=== PATIENT | female | born 1980 | race Caucasian/White ===

== ENCOUNTER 2020-04-15 16:41 | Emergency (ER) | payer SELFPAY ==
--- NOTE | 2020-04-15 17:25 | XR_ITS ---
PROCEDURE: XR SHOULDER LT MIN 2V CLINICAL INDICATION: FALL Posttraumatic pain COMPARISON: No exams were available for comparison FINDINGS: No fracture or dislocation. No lytic or blastic change. There is normal mineralization. The joint spaces are well-preserved. No significant degenerative/arthritic changes. No erosive changes evident. Other findings:Mild hypertrophic changes are present along the under surface and distal aspect of the clavicle. IMPRESSION: No acute findings. Dictated by: Miguel Cardoza MD 04/16/2020 06:06 Miguel Cardoza MD in [place] 04/16/2020 06:06
--- NOTE | 2020-04-15 17:25 | XR_ITS ---
PROCEDURE: XR CLAVICLE LT CLINICAL INDICATION: FALL Posttraumatic pain COMPARISON: No exams were available for comparison FINDINGS: No fracture or dislocation. No lytic or blastic change. There is normal mineralization. The joint spaces are well-preserved. No significant degenerative/arthritic changes. No erosive changes evident. Other findings:Hypertrophic changes are present along the under surface and distal aspect of the clavicle. IMPRESSION: No acute findings. Dictated by: Miguel Cardoza MD 04/16/2020 06:07 Miguel Cardoza MD in [place] 04/16/2020 06:07
[2020-04-15 17:43] VITALS: BP 146/98; PULSE 77; RESP 19; TEMP 36.6; O2SAT 99; BMI 20.2
--- NOTE | 2020-04-15 17:47 | HMH.EDUTC ---
[facility] [place] Clinical Impression: Shoulder sprain Qualifiers: Encounter type: initial encounter Shoulder sprain type: unspecified sprain Laterality: left Qualified Code(s): S43.402A - Unspecified sprain of left shoulder joint, initial encounter Disposition: Home, Self-Care Condition on Discharge: Good Instructions: DI for Shoulder Pain, DI for Shoulder Sprain, How to Use a Sling, Ibuprofen Additional Instructions: *RICE, Rest the extremity, Ice 15-20 minutes 3-4 times daily, Compress- wear the nuno wrap as discussed as much as possible to help reduce swelling and pain, Elevate the extremity when at rest *Nuno wrap/sling is for support and help control swelling, use it except in the shower. Be sure that is not to tight but not to loose either *Elevate when resting *Ibuprofen 600-800mg every 6-8 hours as needed for pain an inflammation. If need something more can take Tylenol in between doses of Ibuprofen to help Call back to the [facility] tomorrow morning for the Radiology reading of your xray Return if needed Straight to ER if any life threatening symptoms FOllow up with your Family Doctor if no improvement for referral to [facility] if needed Referrals: Collin Malcolm [Primary Care Provider] - As needed Forms: Work/School Release Time of Disposition: 18:31 Medical Decision Making - Rajinder Inquiry Pt receiving controlled substance: No Rajinder was queried for this patient: No Vital Signs: 04/15/20 17:43 Temperature 97.9 F Temperature Source Oral Pulse Rate [Right Brachial] 77 Respiratory Rate 19 Blood Pressure [Right Arm] 146/98 H Blood Pressure Mean [Right Arm] 114 Blood Pressure Source [Right Arm] Automatic Cuff Blood Pressure Position [Right Arm] Sitting 02 Sat by Pulse Oximetry 99 Oxygen Delivery Method Room Air Orders (Tests/Meds): ORDERS Category Date Time Status XR clavicle LT Stat Exams 04/15/20 17:25 Taken XR shoulder LT min 2V Stat Exams 04/15/20 17:25 Taken - Radiology Data #1 Image(s): Shoulder (Left shoulder ) Image Reviewed: Yes I reviewed the patient's radiology image w/the ED provider Preliminary Findings: No Fracture Seen #2 Image(s): Clavicle (left clavicle) Image Reviewed: Yes I reviewed the patient's radiology image w/the ED provider Preliminary Findings: No Fracture Seen [facility] [place] - General Stated complaint: AO 1010 fell injured L shoulder Time Seen by Provider: 04/15/20 17:47 Mode of Arrival: Ambulatory Source of Information: Patient Limitations: No Limitations Description of Symptoms (Recalled from Triage Doc. by RN): PATIENT C/O PAIN TO LEFT SHOULDER/COLLARBONE AREA AFTER FALLING ON WEDNESDAY HEENT Symptoms (Recalled from RN notes): No Resp Symptoms (Recalled from RN notes): No Skin Symptoms (Recalled from RN notes): No MS Symptoms (Recalled from RN notes): Yes Functional Status (Recalled from RN notes): WNL - History of Present Illness Provider Complaint: Patient states that she fell on Wed while walking up the steps and landed on her left shoulder States that she has been having pain in left shoulder/collar bone ever since when she moves or raises her arm Denies numbness or tingling - Worker's Comp Is this a Worker's Comp case?: No [facility] History - Hepatitis A Screen Drug use history?: No High risk sexual behaviors?: No History of sexually transmitted infection?: No Currently employed?: No Childcare worker?: No Do you have indoor plumbing?: Yes Do you have electricity?: Yes Attestation statement:: This patient has been screened for Hepatitis A risk factors. I have reviewed the patient's past medical history: Yes - Social History Alcohol Intake: never Occupational Status: other ROS Obtained: Yes All systems reviewed & no additional complaints, Yes Systems reviewed as appropriate & no additional complaints - Constitutional Constitutional: Reports system reviewed and no additional complaints, except as docu - Eyes Eyes: Reports system reviewed and no
[2020-04-15 18:34] VITALS: BP 146/98; PULSE 77; RESP 19; TEMP 36.6; O2SAT 99
== END 2020-04-15 18:35 | disposition home or self-care (01) ==
PROVIDERS: Emergency Provider Nurse Practitioner; PCP Pediatrics
DX: S43.402A Unspecified sprain of left shoulder joint, initial encounter (principal); W10.9XXA Fall (on) (from) unspecified stairs and steps, initial encounter
CPT/HCPCS: 73000; 73030; 99201

== ENCOUNTER 2020-07-24 19:51 | Emergency (ER) | payer OTHER, SELFPAY ==
--- NOTE | 2020-07-24 19:51 | ECG_ITS ---
APPROVED REPORT Exam: Resting ECG HR:82 bpm ECG Measurements Heart Rate 82 AXES AK 160 P 83 QRSd 82 QRS 83 QT 374 T 80 QTc 436 Conclusion Normal sinus rhythm Right atrial enlargement NSSTTW changes Abnormal ECG Electronically signed by : Graham Herrera, 07/25/2020 20:56:35
[2020-07-24 19:52] VITALS: BP 133/109; PULSE 91; RESP 22; TEMP 39.1; O2SAT 99; BMI 20.5
[2020-07-24 20:00] VITALS: TEMP 36.7
--- NOTE | 2020-07-24 20:03 | XR_ITS ---
PROCEDURE: XR CHEST PORTABLE CLINICAL HISTORY: shortness of air Chest discomfort, shortness of air COMPARISON: CT CT ANGIO CHEST from 07/24/2020 FINDINGS: The cardiomediastinal silhouette and pulmonary vascularity are within normal limits. No acute infiltrate. There is coarsening of the bronchovascular markings which may be seen with smoking related lung disease. Minimal left apical pleural thickening. There is a granuloma in the right midlung laterally. No acute bony findings. IMPRESSION: Left apical pleural thickening with COPD. Consider chest CT for further evaluation. Dictated by: Miguel Cardoza MD 07/25/2020 05:41 Miguel Cardoza MD in [place] 07/25/2020 05:41
--- NOTE | 2020-07-24 20:08 | CT_ITS ---
PROCEDURE: CT ANGIO CHEST CLINCIAL INDICATION: chest discomfort Cough fever, possible Covid19 COMPARISON: No exams were available for comparison TECHNIQUE: IV Contrast: 70ML Isovue 370 Axial images obtained with sagittal and coronal reformats. All CT scans at the facility use one or more dose reduction, viz: automated exposure control, ma/kV adjustment per patient size (including targeted exams where dose is matched to indication, i.e. head), or iterative reconstruction technique. FINDINGS: HEART AND MEDIASTINAL STRUCTURES: No evidence of pulmonary embolus, aortic aneurysm, or aortic dissection.. Small nodes are present in the mediastinum. 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 LUNGS AND PLEURAL SPACES: There is mild bronchial thickening. Patchy increased density is present in both lung apices left greater than right and may be due to scarring or consolidation. Neoplasm is not excluded and follow-up is suggested. Scarring is present in the right apex. Vague small area ground-glass attenuation is present in the left upper lobe centrally. No effusions. BONY STRUCTURES: No acute bony abnormalities apparent. UPPER ABDOMEN: Unremarkable. ADDITIONAL FINDINGS: No other significant abnormalities. IMPRESSION: 1. No evidence of pulmonary embolus. 2. Biapical opacities left greater than right which could be due to scarring, pneumonia, or even neoplasm. Follow-up suggested. 3. Minimal ground-glass infiltrate in the left upper lobe centrally nonspecific. This area measures approximately 1.5 cm. Dictated by: Miguel Cardoza MD 07/25/2020 06:39 Miguel Cardoza MD in [place] 07/25/2020 06:39
[2020-07-24 20:11] LABS: Basophils # 0.1 K/mm3 (0-0.2); Basophils % 1.3 % (0.1-2.0); Eosinophils # 0.1 K/mm3 (0.0-0.4); Eosinophils % 2.1 % (0.1-12.0); Hematocrit 47.5 % (37.0-47.0); Hemoglobin 16.4 g/dL (12.2-16.2); Lymphocytes # 3.2 K/mm3 (0.7-4.5); Lymphocytes % 49.3 % (10-50); Mean Corpuscular HGB Conc 34.5 g/dL (31.8-35.4); Mean Corpuscular Hemoglobin 30.2 pg (27.0-31.2); Mean Corpuscular Volume 87.7 fl (81-99); Mean Platelet Volume 9.3 fl (7.4-10.4); Monocytes # 0.4 K/mm3 (0.1-1.0); Monocytes % 5.8 % (1.7-9.3); Neutrophils # 2.7 K/mm3 (1.8-7.8); Neutrophils % 41.4 % (37.0-80.0); Platelet Count 163 K/mm3 (142-424); Red Blood Count 5.42 M/mm3 (4.20-5.40); Red Cell Distribution Width 13.2 % (11.5-17.5); White Blood Count 6.6 K/mm3 (4.8-10.8)
[2020-07-24 20:30] VITALS: BP 165/108; PULSE 84; RESP 17; O2SAT 100
--- NOTE | 2020-07-24 20:46 | HMH.EDSOB ---
ED Disposition Clinical Impression: COVID-19 virus detected, Elevated BP without diagnosis of hypertension Disposition: Home, Self-Care Condition on Discharge: Good Instructions: DI for COVID-19 (Suspected or Confirmed ) Additional Instructions: monitor bp and call pcp for follow up Referrals: PCP,No [Primary Care Provider] - - Critical Care Critical Care Time: No Attestation: On 07/24/20, the high probability of a clinically significant, sudden or life threatening deterioration of the following system(s) required my full and direct attention, intervention and personal management. The time I documented below is in addition to time spent performing reported procedures but includes the following listed in this critical care notation. Medical Decision Making - Medical Records Medical records reviewed: Yes: I reviewed the patient's medical records. - Rajinder Inquiry Pt receiving controlled substance: No Vital Signs: 07/24/20 19:52 07/24/20 20:30 07/24/20 21:00 Temperature 102.3 F H Temperature Source Oral Pulse Rate [Right Brachial] 91 H 84 82 Respiratory Rate 22 17 17 Blood Pressure [Right Arm] 133/109 H 165/108 H 161/109 H Blood Pressure Mean [Right Arm] 117 127 126 Blood Pressure Source [Right Arm] Automatic Cuff Automatic Cuff Automatic Cuff Blood Pressure Position [Right Arm] Sitting Supine Supine 02 Sat by Pulse Oximetry 99 100 98 Oxygen Delivery Method Room Air Room Air Room Air - Lab Data Lab results reviewed: Yes: I reviewed the patient's lab results. Lab Results 07/24/20 19:55: WBC 6.6, RBC 5.42 H, Hgb 16.4 H, Hct 47.5 H, MCV 87.7, MCH 30.2, MCHC 34.5, RDW 13.2, Plt Count 163, MPV 9.3, Neut % (Auto) 41.4, Lymph % (Auto) 49.3, [place] % (Auto) 5.8, Eos % (Auto) 2.1, Baso % (Auto) 1.3, Neut # (Auto) 2.7, Lymph # (Auto) 3.2, [place] # (Auto) 0.4, Eos # (Auto) 0.1, Baso # (Auto) 0.1 07/24/20 19:55: Sodium 139, Potassium 4.2, Chloride 101, Carbon Dioxide 31 H, Anion Gap 11.2, BUN 8, Creatinine 0.60, Estimated Creat Clear 120, Estimated GFR 111, Est GFR ( Amer) 134, Glucose 89, Calcium 9.6, Total Bilirubin 0.5, Direct Bilirubin 0.2, Conjugated Bilirubin 0.0, Indirect Bilirubin 0.3, Unconjugated Bilirubin 0.3, AST 24, ALT 15, Alkaline Phosphatase 74, C-Reactive Protein 10.1 H, Total Protein 8.1, Albumin 4.5 07/24/20 19:55: ESR 20 07/24/20 19:55: Lactate 1.0 07/24/20 19:55: SARS-CoV-2 IgG Ab (Rapid) Negative, SARS-CoV-2 IgM Ab (Rapid) Negative 07/24/20 19:58: Urine Color Yellow, Urine Appearance Clear, Urine pH 7.0, Ur Specific [place] 1.010, Urine Protein Negative, Urine Glucose (UA) Negative, Urine Ketones Negative, Urine Blood Negative, Urine Nitrate Negative, Urine Bilirubin Negative, Urine Urobilinogen 0.2, Ur Leukocyte Esterase 1+ A, Urine WBC 10-20, Ur Squamous Epith Cells 10-20, Urine Bacteria 3+, Urine Mucus 1+ 07/24/20 20:00: Chlamy pneumoniae PCR Not detected, Adenovirus (PCR) Not detected, B. pertussis DNA (PCR) Not detected, Coronavirus OC43 (PCR) Not detected, Coronavirus HKU1 (PCR) Not detected, Coronavirus 229E (PCR) Not detected, SARS-CoV-2 (PCR) Detected A, Coronavirus NL63 (PCR) Not detected, Human Metapneumovir PCR Not detected, Influenza A (H1) PCR Not detected, Influ A (H1N1/09) PCR Not detected, Influenza A (H3) PCR Not detected, Influenza Type A (PCR) Not detected, Influenza Type B (PCR) Not detected, M. pneumoniae (PCR) Not detected, Parainfluenza 1 (PCR) Not detected, Parainfluenza 2 (PCR) Not detected, Parainfluenza 3 (PCR) Not detected, Parainfluenza 4 (PCR) Not detected, RSV (PCR) Not detected, Entero/Rhino (PCR) Not detected Result diagrams: 07/24/20 19:55 07/24/20 19:55 Orders (Tests/Meds): ED MEDICATIONS Generic Name Dose Route Start Last Admin Trade Name Freq PRN Reason Stop Dose Admin Sodium Chloride 1,000 mls @ 999 mls/hr 07/24/20 20:15 07/24/20 20:14 Sod Chlor 0.9% 1000ml Bag IV 07/24/20 21:15 999 mls/hr .Q1H1M MANI Administration Ceftriaxone Sodium 1 gm/
[2020-07-24 20:54] LABS: Adenovirus,PCR Not Detected (NotDetected); Bordetella Pertussis Not Detected (NotDetected); Chlamydophila Pneumoniae, PCR Not Detected (NotDetected); Coronavirus 229E Not Detected (NotDetected); Coronavirus NL63 Not Detected (NotDetected); Coronavirus OC43 Not Detected (NotDetected); Coronovirus HKU1,PCR Not Detected (NotDetected); Human Metapneumovirus Not Detected (NotDetected); Influenza A, PCR Not Detected (NotDetected); Influenza AH1, 2009 Not Detected (NotDetected); Influenza AH1, PCR Not Detected (NotDetected); Influenza AH3,PCR Not Detected (NotDetected); Influenza B, PCR Not Detected (NotDetected); Mycoplasma Pneumoniae, PCR Not Detected (NotDetected); Parainfluenza 1, PCR Not Detected (NotDetected); Parainfluenza 2, PCR Not Detected (NotDetected); Parainfluenza 3, PCR Not Detected (NotDetected); Parainfluenza 4, PCR Not Detected (NotDetected); Respiratory Syncytial Virus Not Detected (NotDetected); Rhinovirus/Enterovirus Not Detected (NotDetected)
[2020-07-24 21:00] VITALS: BP 161/109; PULSE 82; RESP 17; O2SAT 98
[2020-07-24 21:01] LABS: Erythrocyte Sedimentation Rate 20 mm/hr (0-20)
[2020-07-24 21:03] LABS: Chloride 101 mmol/L (98-107); Potassium 4.2 mmoL/L (3.5-5.1); Sodium 139 mmol/L (136-145)
[2020-07-24 21:05] LABS: Bilirubin,Unconjugated 0.3 mg/dL (0.0-1.1); Blood Urea Nitrogen 8 mg/dl (7-17); Creatinine Clearance Estimated 120 mL/min (50-200); Estimated Glomerular Filt Rate 111 ml/min (>60); GFR (African American) 134 ML/MIN (>60)
[2020-07-24 21:06] LABS: Alanine Aminotransferase 15 U/L (12-78); Albumin Level 4.5 g/dl (3.5-5.0); Alkaline Phosphatase 74 U/L (38-126); Anion Gap 11.2 mEq/L (5-15); Aspartate Amino Transferase 24 U/L (14-36); Bilirubin,Direct 0.2 mg/dl (0.0-0.4); Bilirubin,Indirect 0.3 mg/dL (0.0-0.9); Bilirubin,Total 0.5 mg/dl (0.2-1.3); Calcium 9.6 mg/dl (8.4-10.2); Carbon Dioxide 31 mmol/L (22.0-30.0); Glucose 89 mg/dl (74-100); Total Protein,Serum 8.1 g/dl (6.3-8.2)
[2020-07-24 21:12] LABS: C-Reactive Protein 10.1 mg/L (0-4)
[2020-07-24 21:18] LABS: Microscopic, Urine URINE MICROSCOPIC (MICROSCOPIC)
[2020-07-24 21:41] LABS: Appearance,Urine CLEAR (Clear); Bilirubin,Urine Negative (Negative); Blood, Urine Negative (Negative); Color,Urine YELLOW (Yellow); Glucose,Urine (UA) Negative (Negative); Ketones,Urine Negative (Negative); Leukocyte Esterase,Urine 1+ (Negative); Nitrate,Urine Negative (Negative); Protein,Urine Negative (Negative); Urobilinogen,Urine 0.2 EU/dl (0.2)
[2020-07-24 21:54] LABS: Bacteria,Urine 3+ /lpf; Mucus,Urine 1+ /lpf
[2020-07-24 22:07] LABS: Coronavirus 19 IgG Antibody Negative (Negative); Coronavirus 19 IgM Antibody Negative (Negative)
[2020-07-24 22:16] LABS: Coronavirus 19, PCR Detected (NotDetected)
[2020-07-24 22:30] VITALS: BP 151/101; PULSE 77; RESP 25; TEMP 36.9; O2SAT 98
== END 2020-07-24 22:52 | disposition home or self-care (01) ==
PROVIDERS: Emergency Provider Emergency Medicine; PCP Nurse Practitioner
DX: U07.1 COVID-19 (principal); R03.0 Elevated blood-pressure reading, without diagnosis of hypertension
CPT/HCPCS: 71045; 71275; 80048; 80076; 81001; 83605; 85025; 85651; 86140; 86328; 87040; 87086; 87088; 87186; 87581; 87633; 87798; 93005; 96365; 96375; 99284; Q9967

== ENCOUNTER → 2020-12-28 07:04 | Outpatient (CLI) | payer OTHER, SELFPAY ==
[2020-12-28 07:58] LABS: Basophils # 0.1 K/mm3 (0-0.2); Basophils % 0.8 % (0.1-2.0); Eosinophils # 0.1 K/mm3 (0.0-0.4); Eosinophils % 1.7 % (0.1-12.0); Hematocrit 42.5 % (37.0-47.0); Hemoglobin 14.4 g/dL (12.2-16.2); Lymphocytes # 2.2 K/mm3 (0.7-4.5); Lymphocytes % 34.1 % (10-50); Mean Corpuscular HGB Conc 33.7 g/dL (31.8-35.4); Mean Corpuscular Hemoglobin 29.6 pg (27.0-31.2); Mean Corpuscular Volume 87.7 fl (81-99); Mean Platelet Volume 9.7 fl (7.4-10.4); Monocytes # 0.4 K/mm3 (0.1-1.0); Neutrophils # 3.7 K/mm3 (1.8-7.8); Neutrophils % 57.5 % (37.0-80.0); Platelet Count 207 K/mm3 (142-424); Red Blood Count 4.85 M/mm3 (4.20-5.40); White Blood Count 6.5 K/mm3 (4.8-10.8)
[2020-12-28 12:22] LABS: Chloride 105 mmol/L (98-107); Potassium 4.3 mmoL/L (3.5-5.1); Sodium 138 mmol/L (136-145)
[2020-12-28 12:24] LABS: Blood Urea Nitrogen 7 mg/dl (7-17); Estimated Glomerular Filt Rate 110 ml/min (>60)
[2020-12-28 12:25] LABS: Alanine Aminotransferase 9 U/L (12-78); Albumin Level 3.9 g/dl (3.5-5.0); Albumin/Globulin Ratio 1.6 (1.1-1.8); Alkaline Phosphatase 68 U/L (38-126); Anion Gap 13.3 mEq/L (5-15); Aspartate Amino Transferase 18 U/L (14-36); Bilirubin,Total 0.5 mg/dl (0.2-1.3); Calcium 8.9 mg/dl (8.4-10.2); Carbon Dioxide 24 mmol/L (22.0-30.0); Cholesterol 111 mg/dl (140-200); GFR (African American) 133 ML/MIN (>60); Globulin 2.5 g/dL (1.3-3.2); Glucose 86 mg/dl (74-100); Total Protein,Serum 6.4 g/dl (6.3-8.2); Triglycerides 88 mg/dl (30-150); VLDL Cholesterol 18 mg/dL (0-40)
[2020-12-28 12:26] LABS: Chol/HDL Ratio 2.8 (1-3.5); HDL Cholesterol 39 mg/dl (40-60)
[2020-12-28 12:37] LABS: Direct LDL Cholesterol 56.94 mg/dL (100-129)
[2020-12-28 12:56] LABS: Thyroid Stimulating Hormone 0.51 uIU/mL (0.465-4.68)
[2020-12-28 14:14] LABS: Vitamin B12 286 pg/mL (239-931)
== END ==
PROVIDERS: Visit Provider Nurse Practitioner Family
DX: I10 Essential (primary) hypertension (principal); R53.81 Other malaise
CPT/HCPCS: 80053; 80061; 82607; 84443; 85025

== ENCOUNTER → 2021-05-23 17:36 | Outpatient (CLI) | payer OTHER, SELFPAY | PROVIDERS: Visit Provider Internal Medicine Adolescent Medicine | DX: L73.9 Follicular disorder, unspecified (principal); B95.8 Unspecified staphylococcus as the cause of diseases classified elsewhere | CPT/HCPCS: 87070; 87077; 87186; 87205 ==

== ENCOUNTER → 2021-07-08 07:23 | Outpatient (CLI) | payer OTHER, SELFPAY | PROVIDERS: PCP Nurse Practitioner Family; Visit Provider Nurse Practitioner Family | DX: Z20.822 Contact with and (suspected) exposure to COVID-19 (principal); R05.9 Cough, unspecified | CPT/HCPCS: C9803; U0003; U0005 ==

== ENCOUNTER 2022-01-10 19:24 | Emergency (ER) | payer OTHER, SELFPAY ==
--- NOTE | 2022-01-10 19:16 | ECG_ITS ---
APPROVED REPORT Exam: Resting ECG HR:86 bpm ECG Measurements Heart Rate 86 AXES UT 155 P 80 QRSd 86 QRS 86 QT 359 T 79 QTc 402 Conclusion SINUS RHYTHM MODERATE ST DEPRESSION [0.05+ mV ST DEPRESSION] ABNORMAL ECG UNCONFIRMED REPORT Electronically signed by : Graham Herrera MD 01/12/2022 14:05:10
[2022-01-10 19:25] VITALS: BP 149/104; PULSE 89; RESP 16; TEMP 38.5; O2SAT 98; BMI 21.2
--- NOTE | 2022-01-10 19:27 | XR_ITS ---
PROCEDURE INFORMATION: Exam: XR Chest Exam date and time: 01/10/2022 7:39 PM Age: 41 years old Clinical indication: Sternal or substernal pain and other: Cough; Additional info: Chest pain and cough TECHNIQUE: Imaging protocol: Radiologic exam of the chest. Views: 1 view. COMPARISON: CR XR CHEST PORTABLE 07/24/2020 8:37 PM FINDINGS: Lungs: Lungs appear mildly hyperinflated with potential apical scarring. No consolidation. Pleural spaces: No pneumothorax. Heart/Mediastinum: No cardiomegaly. Bones/joints: No acute abnormality. IMPRESSION: Chronic changes without acute process.
[2022-01-10 19:40] LABS: Influenza A, PCR Not Detected (NotDetected); Influenza B, PCR Not Detected (NotDetected)
[2022-01-10 19:45] VITALS: BP 161/101; PULSE 80; RESP 20; O2SAT 97
[2022-01-10 19:51] LABS: Basophils # 0.2 K/mm3 (0-0.2); Basophils % 3.9 % (0.1-2.0); Eosinophils % 0.2 % (0.1-12.0); Hematocrit 45.5 % (37.0-47.0); Hemoglobin 14.9 g/dL (12.2-16.2); Lymphocytes # 0.6 K/mm3 (0.7-4.5); Lymphocytes % 12.5 % (10-50); Mean Corpuscular HGB Conc 32.7 g/dL (31.8-35.4); Mean Corpuscular Hemoglobin 30.1 pg (27.0-31.2); Mean Corpuscular Volume 92.3 fl (81-99); Mean Platelet Volume 9.1 fl (7.4-10.4); Monocytes # 0.5 K/mm3 (0.1-1.0); Monocytes % 9.6 % (1.7-9.3); Neutrophils # 3.5 K/mm3 (1.8-7.8); Neutrophils % 73.8 % (37.0-80.0); Platelet Count 202 K/mm3 (142-424); Red Blood Count 4.93 M/mm3 (4.20-5.40); Red Cell Distribution Width 13.5 % (11.5-17.5); White Blood Count 4.7 K/mm3 (4.8-10.8)
[2022-01-10 19:52] LABS: HCG Qualitative, Serum Negative (Negative)
[2022-01-10 19:53] LABS: Alanine Aminotransferase 10 U/L (12-78); Albumin Level 4.2 g/dl (3.5-5.0); Albumin/Globulin Ratio 1.6 (1.1-1.8); Alkaline Phosphatase 89 U/L (38-126); Anion Gap 11.5 mEq/L (5-15); Aspartate Amino Transferase 18 U/L (14-36); Bilirubin,Total 0.2 mg/dl (0.2-1.3); Calcium 9.2 mg/dl (8.4-10.2); Carbon Dioxide 27 mmol/L (22.0-30.0); Chloride 100 mmol/L (98-107); Creatinine Clearance Estimated 122 mL/min (50-200); Estimated Glomerular Filt Rate 110 ml/min (>60); GFR (African American) 133 ML/MIN (>60); Globulin 2.7 g/dL (1.3-3.2); Glucose 102 mg/dl (74-100); Potassium 3.5 mmoL/L (3.5-5.1); Sodium 135 mmol/L (136-145); Total Protein,Serum 6.9 g/dl (6.3-8.2)
[2022-01-10 19:58] LABS: D-Dimer 0.82 ug/mL (0.0-0.5)
--- NOTE | 2022-01-10 19:58 | HMH.EDCP ---
ED Disposition Clinical Impression: COVID-19 Disposition: Home, Self-Care Condition on Discharge: Fair Instructions: DI for Atypical Chest Pain, Coronavirus Disease 2019 Additional Instructions: Your work-up in the emergency department today showed that you have COVID-19. At this point you are stable. You do not require admission to the hospital. Return to the emergency department if you feel worse in any way. You may take [id number] ibuprofen and/or Tylenol for the fever and aches and pains. Referrals: Alexus Pike APRN [Primary Care Provider] - - Critical Care Critical Care Time: No Attestation: On 01/10/22, the high probability of a clinically significant, sudden or life threatening deterioration of the following system(s) required my full and direct attention, intervention and personal management. The time I documented below is in addition to time spent performing reported procedures but includes the following listed in this critical care notation. Medical Decision Making - Rajinder Inquiry Pt receiving controlled substance: No Vital Signs: 01/10/22 19:25 01/10/22 19:45 Temperature 101.3 F H Temperature Source Oral Pulse Rate 80 Pulse Rate [Left] 89 Respiratory Rate 16 20 Blood Pressure 161/101 H Blood Pressure [Right Arm] 149/104 H Blood Pressure Mean [Right Arm] 119 02 Sat by Pulse Oximetry 98 97 Oxygen Delivery Method Room Air Room Air - Lab Data Lab results reviewed: Yes: I reviewed the patient's lab results. Lab Results 01/10/22 19:20: WBC 4.7 L, RBC 4.93, Hgb 14.9, Hct 45.5, MCV 92.3, MCH 30.1, MCHC 32.7, RDW 13.5, Plt Count 202, MPV 9.1, Neut % (Auto) 73.8, Lymph % (Auto) 12.5, [place] % (Auto) 9.6 H, Eos % (Auto) 0.2, Baso % (Auto) 3.9 H, Neut # (Auto) 3.5, Lymph # (Auto) 0.6 L, [place] # (Auto) 0.5, Eos # (Auto) 0.0, Baso # (Auto) 0.2 01/10/22 19:20: D-Dimer 0.82 H 01/10/22 19:20: Sodium 135 L, Potassium 3.5, Chloride 100, Carbon Dioxide 27, Anion Gap 11.5, BUN < 2 L, Creatinine 0.60, Estimated Creat Clear 122, Estimated GFR 110, Est GFR ( Amer) 133, Glucose 102 H, Calcium 9.2, Total Bilirubin 0.2, AST 18, ALT 10 L, Alkaline Phosphatase 89, Troponin I < 0.01, Total Protein 6.9, Albumin 4.2, Globulin 2.7, Albumin/Globulin Ratio 1.6 01/10/22 19:20: Serum HCG, Qual Negative 01/10/22 19:20: Procalcitonin 0.053 01/10/22 19:34: SARS-CoV-2 (PCR) Detected A, Influenza A Untype (PCR) Not detected, Influenza Type B (PCR) Not detected 01/10/22 19:50: Lactate 0.6 L Result diagrams: 01/10/22 19:20 01/10/22 19:20 Orders (Tests/Meds): ED MEDICATIONS Discontinued Medications Generic Name Dose Route Start Last Admin Trade Name Dipti PRN Reason Stop Dose Admin Acetaminophen 1,000 mg 01/10/22 19:41 01/10/22 19:59 Acetaminophen 500mg Tab PO 01/10/22 19:42 1,000 mg ONCE ONE Administration Aspirin 324 mg 01/10/22 19:27 01/10/22 19:50 Aspirin 81mg Chewable Tablet PO 01/10/22 19:28 324 mg ONCE ONE Administration Ketorolac Tromethamine 30 mg 01/10/22 20:01 01/10/22 20:12 Ketorolac 30mg/Ml Vial IV 01/10/22 20:02 30 mg ONCE ONE Administration ORDERS Category Date Time Status Troponin I Q3H Lab 01/10/22 22:30 Ordered Troponin I Q3H Lab 01/11/22 01:30 Ordered Blood Culture Stat Micro 01/10/22 19:50 Received - Radiology Data #1 Image(s): Chest Image Reviewed: Yes I reviewed the patient's radiology image Preliminary Findings: Normal/NAD - ECG Data Tracing #1 I reviewed this ECG and interpreted as documented below: Was performed at 1917 p.m. It shows a sinus rhythm with a ventricular rate of 86 bpm. Patient's diffusely. Evidence of ischemia. The intervals are normal. Are normal. Medical Decision Narrative: Work-up in the emergency department did not reveal any life-threatening or dangerous causes. The patient's EKG is unremarkable. Her chest x-ray is also unremarkable. Positive for COVID-19. I suspect that the [place]
--- NOTE | 2022-01-10 19:59 | PC.NURSE ---
ER speaking with pt at this time
[2022-01-10 20:08] LABS: Troponin I < 0.01 ng/ml (0.00-0.034)
[2022-01-10 20:11] LABS: Procalcitonin 0.053 ng/mL (0.0-2.0)
[2022-01-10 20:14] LABS: Lactic Acid 0.6 mmol/L (0.7-2.1)
[2022-01-10 20:17] LABS: Blood Urea Nitrogen < 2 mg/dl (7-17)
[2022-01-10 20:29] LABS: Coronavirus 19, PCR Detected (NotDetected)
[2022-01-10 20:30] VITALS: BP 157/99; PULSE 84; RESP 16; O2SAT 98
[2022-01-10 20:40] VITALS: BP 157/99; PULSE 84; RESP 18; TEMP 36.8; O2SAT 99
== END 2022-01-10 20:45 | disposition home or self-care (01) ==
PROVIDERS: Emergency Medicine; Emergency Provider Emergency Medicine; PCP Nurse Practitioner Family
DX: U07.1 COVID-19 (principal); R07.9 Chest pain, unspecified; R05.9 Cough, unspecified; Z72.0 Tobacco use
CPT/HCPCS: 71045; 80053; 83605; 84145; 84484; 84703; 85025; 85378; 87040; 93005; 96374; 99284; C9803; U0003; U0005

== ENCOUNTER 2022-03-17 10:28 | Day surgery (SDC) | payer OTHER, SELFPAY ==
[2022-03-13 14:40] VITALS: BMI 19.3
--- NOTE | 2022-03-17 10:38 | EXP.ANES.CKL ---
PFSH PFS Medical History (Updated 03/13/22 @ 14:35 by Marli Pike RN) Arthritis Asthma COPD (chronic obstructive pulmonary disease) Endometriosis Gallbladder disease History of COVID-19 Hypertension Migraine Surgical History (Updated 03/13/22 @ 14:40 by Marli Pike, RN) H/O breast biopsy History of bladder surgery History of cholecystectomy History of neck surgery History of partial hysterectomy Hx of tubal ligation Family History (Updated 03/13/22 @ 14:24 by Marli Pike, RN) Mother Breast cancer Grandfather Skin cancer Grandmother Lung cancer Social History (Updated 03/13/22 @ 14:27 by Marli Pike RN) Smoking Status: Current every day smoker tobacco type: cigarettes packs per day: 2 years smoked: 20 second hand exposure: Yes alcohol intake: current substance use type: crack/cocaine current occupational status: employed Travel in the last 8 weeks: None [facility] Anesthesia Checklist Patient Identification Patient Identification: Arm Band and Verbal (Name & ) Structural Data Admitted From: Home Planned Operative Procedure/s: Colonoscopy Consent for Planned Operative Procedure(s) Verified: Yes Verified Documents: Surgical Consent NPO Status Verified Time NPO: 05:00 Additional verifications Anesthesia Reactions: No Hx Blood Transfusions: No Blood Transfusion Reaction: No Cephalosporin Allergy: No Airway Assessment C-Spine Mobility Assessed: Yes TMJ Mobility Assessed: Yes Dentition: Good Dentition Neurological Assessment Level of Consciousness: Awake, Alert and Appropriate Anesthesia Plan Anesthesia Risk discussed: Yes ASA Class: II Anesthesia Type: MAC
[2022-03-17 10:43] VITALS: BP 163/84; PULSE 60; RESP 17; TEMP 36.2; O2SAT 100
[2022-03-17 11:21] VITALS: O2SAT 100
[2022-03-17 12:16] VITALS: BP 134/77; PULSE 48; RESP 18; TEMP 36.1; O2SAT 99
--- NOTE | 2022-03-17 12:16 | P.PCN_ITS ---
Procedure: Date: 03/17/22 Patient Date of :: 1980 Procedure Performed:: Colonoscopy with polypectomy Indications:: Bright red blood per rectum Performing Provider:: Jerson Roa MD Referring Provider:: Dr. Herrera Sedation:: Monitored anesthesia care Procedure:: After informed consent was obtained the patient was taken to the endoscopy suite. Sedation ensued after the patient was transferred to the left lateral decubitus position. Pulse, blood pressure, and oxygen saturation were monitored throughout the procedure. Digital rectal exam revealed no significant abnormality. The colonoscope was placed in position. The entire colon was evaluated. The colonoscope was carefully removed and the patient was transferred to recovery in stable condition. Please see findings and specimens below for detail. Findings:: Bowel preparation poor Fairly severe lack of relaxation Minimal hemorrhoidal cushions Polyps (see specimens) Specimens:: Right colon polyp (cold snare) Polyp at 7 cm (cold snare) Recommendations:: Timing of repeat colonoscopy is pending pathology but will likely be between 6- 12 months secondary to poor bowel preparation and lack of relaxation. Consider gastroenterology evaluation for possible irritable bowel with constipation. Complications:: No immediate Estimated blood obtained (mL): 1
[2022-03-17 12:26] VITALS: BP 126/98; PULSE 54; RESP 18; O2SAT 100
[2022-03-17 12:37] VITALS: BP 141/84; PULSE 46; RESP 18; O2SAT 98
[2022-03-17 12:50] VITALS: BP 157/84; PULSE 53; RESP 18; O2SAT 100
== END 2022-03-17 12:55 | disposition home or self-care (01) ==
PROVIDERS: PCP Internal Medicine Adolescent Medicine; Visit Provider Surgery
PROC: 0DJD8ZZ Inspection of Lower Intestinal Tract, Via Natural or Artificial Opening Endoscopic (ICD-10-PCS; CPT 45385; principal; 2022-03-17 11:30)
DX: K62.5 Hemorrhage of anus and rectum (principal); Z72.0 Tobacco use; K63.5 Polyp of colon; Z79.899 Other long term (current) drug therapy
CPT/HCPCS: 45385; J2704

== ENCOUNTER 2022-05-30 08:00 | Emergency (ER) | payer OTHER, SELFPAY ==
[2022-05-30 08:07] VITALS: BP 140/98; PULSE 93; RESP 20; O2SAT 99; BMI 18.2
[2022-05-30 08:15] VITALS: BP 140/98; PULSE 93; RESP 20; TEMP 36.9; O2SAT 99; BMI 18.1
--- NOTE | 2022-05-30 08:27 | XR_ITS ---
PROCEDURE INFORMATION: Exam: XR Left Shoulder Exam date and time: 05/30/2022 9:09 AM Age: 41 years old Clinical indication: Pain; Shoulder; Left TECHNIQUE: Imaging protocol: Radiologic exam of the Left shoulder. Views: 2 or more views. COMPARISON: CR XR SHOULDER LT MIN 2V 04/15/2020 5:48 PM FINDINGS: Bones/joints: Normal. Partially visualized cervical spine fusion hardware. Soft tissues: Mild soft tissue swelling overlying the left shoulder. IMPRESSION: No acute fracture. Mild soft tissue swelling overlying the left shoulder.
--- NOTE | 2022-05-30 08:27 | XR_ITS ---
PROCEDURE INFORMATION: Exam: XR Left Clavicle, Complete Exam date and time: 05/30/2022 9:07 AM Age: 41 years old Clinical indication: Pain; Shoulder; Left TECHNIQUE: Imaging protocol: Radiologic exam of the Left clavicle. Complete exam. Views: Any number of views. COMPARISON: CR XR CLAVICLE LT 04/15/2020 5:47 PM FINDINGS: Bones/joints: Normal. Soft tissues: Normal. IMPRESSION: No acute findings.
--- NOTE | 2022-05-30 08:27 | XR_ITS ---
PROCEDURE INFORMATION: Exam: XR Cervical Spine Exam date and time: 05/30/2022 9:04 AM Age: 41 years old Clinical indication: Neck pain; Patient HX: Previous surgery cspine TECHNIQUE: Imaging protocol: Radiologic exam of the cervical spine. Views: 2 or 3 views. COMPARISON: CR XR CHEST PORTABLE 01/10/2022 7:39 PM FINDINGS: Bones/joints: Anterior cervical spine fusion hardware and intervertebral body disc spacer extending from C5-C6. Moderate degenerative disc disease most notable at the C4-C5 level. No acute fracture. There is straightening of the cervical spine alignment. Soft tissues: Unremarkable. IMPRESSION: 1. No acute abnormality. 2. Anterior cervical spine fusion hardware and intervertebral body disc spacer extending from C5-C6. 3. Moderate degenerative disc disease most notable at the C4-C5 level.
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
[2022-05-30 09:44] VITALS: BP 140/98; PULSE 93; RESP 20; TEMP 36.9; O2SAT 99
== END 2022-05-30 09:50 | disposition home or self-care (01) ==
PROVIDERS: Emergency Provider Nurse Practitioner; PCP Internal Medicine Adolescent Medicine
DX: S46.912A Strain of unspecified muscle, fascia and tendon at shoulder and upper arm level, left arm, initial encounter (principal); X50.3XXA Overexertion from repetitive movements, initial encounter
CPT/HCPCS: 72040; 73000; 73030; 99213; G0463

== ENCOUNTER 2023-02-25 20:05 | Emergency (ER) | payer OTHER, SELFPAY ==
[2023-02-25] VITALS (8 sets, daily range): BP systolic 134–161; BP diastolic 85–97; PULSE 57–76; RESP 18; TEMP 36.7; O2SAT 93–100; BMI 19.3
--- NOTE | 2023-02-25 20:06 | ECG_ITS ---
APPROVED REPORT Exam: Resting ECG HR:64 bpm ECG Measurements Heart Rate 64 AXES HI 177 P 72 QRSd 84 QRS 74 QT 438 T 75 QTc 448 Conclusion SINUS RHYTHM NORMAL ECG UNCONFIRMED REPORT Electronically signed by : Graham Herrera MD 02/26/2023 15:30:09
--- NOTE | 2023-02-25 20:32 | XR_ITS ---
PROCEDURE INFORMATION: Exam: XR Chest Exam date and time: 02/25/2023 8:32 PM Age: 42 years old Clinical indication: Shortness of breath; Additional info: SOB TECHNIQUE: Imaging protocol: Radiologic exam of the chest. Views: 1 view. COMPARISON: CR XR CHEST PORTABLE 01/10/2022 7:39 PM FINDINGS: Lungs: Mild hyperexpansion and hyperlucency with mild diaphragmatic flattening suggesting possible COPD. Minor bilateral apical pleuroparenchymal scarring. Pulmonary vasculature grossly normal. No gross pulmonary infiltrates or edema pattern. Pleural spaces: No pleural effusion. No pneumothorax. Heart/Mediastinum: Heart size normal. No tracheal/mediastinal shift. Bones/joints: No acute osseous abnormalities are identified. IMPRESSION: 1. No acute thoracic process. 2. Evidence of COPD.
--- NOTE | 2023-02-25 20:34 | HMH.EDGENADL ---
Discharge Plan Disposition Patient Disposition: Home, Self-Care Condition: Good Chief Complaint: Chest Pain Prescriptions Prescriptions: No Action methocarbamol 500 mg tablet 500 mg PO TID PRN (Reason: muscle spasm) Qty: 15 0RF etodolac 200 mg capsule 200 mg PO Q8H PRN (Reason: pain) Qty: 15 0RF lisinopril 20 MG tablet 20 mg PO DAILY propranolol 10 MG tablet 10 mg PO DAILY trazodone 150 MG tablet 150 mg PO DAILY methylprednisolone [Medrol (Leo)] 4 mg tablets,dose pack See Rx Instructions .ROUTE .COMPLEX Rx Instructions: taper pack; Referrals Follow up/Referrals: Provider,Referral, MD [Referring] - See instructions Activity Restrictions/Add. Instructions Additional Instructions/Restrictions: At this time is felt you are safe to be discharged home. If new or worsening symptoms please not hesitate to return the emergency department. Please take your medications as prescribed. Clinical Impressions Clinical Impression: Acute exacerbation of chronic obstructive pulmonary disease Discharge ED Provider: Ronni Houston General Adult HPI General Chief complaint: Chest Pain Stated complaint: chest pain Time Seen by Provider: 02/25/23 20:19 Mode of Arrival: Family Vehicle Source of Information: Patient Limitations: No Limitations Description of Symptoms (Recalled from ER Triage Doc. by RN): 42 yo female presents with CC of midsternal chest pain that increases in intensity with inspiration. States she was seen by [employer] REPRESENTATIVE at Dr Herrera's office and placed on amoxicillin for a cold due to testing negative for COVID AND FLU. Patient afebrile. No obvious congestion noted. Denies n/v/d. Reports poor appetite History of Present Illness HPI narrative: Patient is a 42-year-old female with past medical history of COPD not on oxygen who presents emergency department for evaluation of chest pain. Onset was acute, substernal, pressure-like. States that she felt this way similarly when she had COVID previously. There is associated cough over the last few days. Due to persistent symptoms she presents here for continued evaluation. No other acute complaints at this time. Related Data Home Medications Medication Instructions Recorded Confirmed lisinopril 20 mg tablet 20 mg PO DAILY HTN 01/16/22 02/25/23 propranolol 10 mg tablet 10 mg PO DAILY HTN 01/16/22 02/25/23 trazodone 150 mg tablet 150 mg PO DAILY sleep 01/16/22 02/25/23 methylprednisolone 4 mg tablets in See Rx Instructions .Route 02/25/23 02/25/23 a dose pack (Medrol (Leo)) .COMPLEX Congestion Previous Rx's Medication Instructions Recorded etodolac 200 mg capsule 200 mg PO Q8H PRN pain #15 caps 05/30/22 methocarbamol 500 mg tablet 500 mg PO TID PRN muscle spasm #15 05/30/22 tabs Allergies Allergy/AdvReac Type Severity Reaction Status Date / Time No Known Allergies Allergy Verified 03/25/22 10:26 [facility] Disclaimer: The information contained in this section may have been updated after the patient was seen, as this information can be updated by other users. Medical History (Updated 02/25/23 @ 23:27 by Ronni Houston MD) Arthritis Asthma COPD (chronic obstructive pulmonary disease) Endometriosis Gallbladder disease History of COVID-19 Hypertension Migraine Surgical History H/O breast biopsy History of bladder surgery History of cholecystectomy History of colonoscopy History of neck surgery History of partial hysterectomy Hx of tubal ligation Family History Mother Breast cancer Grandfather Skin cancer Grandmother Lung cancer Social History (Updated 05/30/22 @ 08:34 by Rosalie Agosto RN) Smoking Status: Unknown if ever smoked years smoked: 20 second hand exposure: Yes alcohol intake: current substance use type: crack/cocaine current occupational sta
[2023-02-25 20:42] LABS: Alanine Aminotransferase 13 U/L (12-78); Albumin Level 3.6 g/dl (3.5-5.0); Albumin/Globulin Ratio 1.3 (1.1-1.8); Alkaline Phosphatase 74 U/L (38-126); Anion Gap 11.2 mEq/L (5-15); Aspartate Amino Transferase 18 U/L (14-36); Basophils % 0.5 % (0.1-2.0); Bilirubin,Total 0.2 mg/dl (0.2-1.3); Blood Urea Nitrogen 3 mg/dl (7-17); Calcium 8.6 mg/dl (8.4-10.2); Carbon Dioxide 29 mmol/L (22.0-30.0); Chloride 104 mmol/L (98-107); Creatinine Clearance Estimated 82 mL/min (50-200); Eosinophils # 0.1 K/mm3 (0.0-0.4); Eosinophils % 1.4 % (0.1-12.0); Estimated Glomerular Filt Rate 78 ml/min (>60); GFR (African American) 95 ML/MIN (>60); Globulin 2.7 g/dL (1.3-3.2); Glucose 99 mg/dl (74-100); Hematocrit 40.2 % (37.0-47.0); Hemoglobin 13.5 g/dL (12.2-16.2); Lymphocytes # 1.8 K/mm3 (0.7-4.5); Lymphocytes % 40.3 % (10-50); Mean Corpuscular HGB Conc 33.6 g/dL (31.8-35.4); Mean Corpuscular Hemoglobin 29.7 pg (27.0-31.2); Mean Corpuscular Volume 88.2 fl (81-99); Mean Platelet Volume 8.9 fl (7.4-10.4); Monocytes # 0.4 K/mm3 (0.1-1.0); Monocytes % 8.5 % (1.7-9.3); Neutrophils # 2.2 K/mm3 (1.8-7.8); Neutrophils % 49.3 % (37.0-80.0); Platelet Count 215 K/mm3 (142-424); Potassium 3.2 mmoL/L (3.5-5.1); Red Blood Count 4.56 M/mm3 (4.20-5.40); Red Cell Distribution Width 13.3 % (11.5-17.5); Sodium 141 mmol/L (136-145); Total Protein,Serum 6.3 g/dl (6.3-8.2); White Blood Count 4.4 K/mm3 (4.8-10.8)
[2023-02-25 20:57] LABS: Troponin I < 0.01 ng/ml (0.00-0.034)
--- NOTE | 2023-02-25 22:19 | PC.NURSE ---
covid swab sent to lab
[2023-02-25 22:23] LABS: Coronavirus 19, PCR Not Detected (NotDetected); Influenza A, PCR Not Detected (NotDetected); Influenza B, PCR Not Detected (NotDetected)
--- NOTE | 2023-02-25 22:55 | PC.NURSE ---
pt resting in bed no needs, at bs
[2023-02-26 00:37] LABS: Troponin I < 0.01 ng/ml (0.00-0.034)
[2023-02-26 00:59] VITALS: BP 134/74; PULSE 61; RESP 16; TEMP 36.7; O2SAT 97
== END 2023-02-26 00:58 | disposition home or self-care (01) ==
PROVIDERS: Emergency Provider Emergency Medicine; PCP Internal Medicine Adolescent Medicine
DX: J44.1 Chronic obstructive pulmonary disease with (acute) exacerbation (principal); R07.2 Precordial pain; E87.6 Hypokalemia; I10 Essential (primary) hypertension; M19.90 Unspecified osteoarthritis, unspecified site; Z87.891 Personal history of nicotine dependence
CPT/HCPCS: 71045; 80053; 84484; 85025; 87636; 93005; 96374; 96375; 99284; J0456

== ENCOUNTER 2023-03-18 16:34 | Observation (INO) | payer OTHER, SELFPAY ==
[2023-03-18 16:50] VITALS: O2SAT 100
[2023-03-18 17:02] VITALS: BP 155/95; PULSE 82; RESP 20; TEMP 36.4; O2SAT 100; BMI 18.6
--- NOTE | 2023-03-18 17:15 | CT_ITS ---
PROCEDURE INFORMATION: Exam: CTA Chest Without And With Contrast Exam date and time: 03/18/2023 6:29 PM Age: 42 years old Clinical indication: Tachypnea TECHNIQUE: Imaging protocol: Computed tomographic angiography of the chest without and with contrast. Exam focused on the arteries. 3D rendering (Not supervised by radiologist): MIP and/or 3D reconstructed images were created by the technologist. Radiation optimization: All CT scans at this facility use at least one of these dose optimization techniques: automated exposure control; mA and/or kV adjustment per patient size (includes targeted exams where dose is matched to clinical indication); or iterative reconstruction. Contrast material: ISOVUE 370; Contrast volume: 70 ml; Contrast route: INTRAVENOUS (IV); REPORTING DATA: Count of CT and Cardiac NM exams in prior 12 months: This patient has received 0 known CTs and 0 known cardiac nuclear medicine studies in the 12 months prior to the current study. COMPARISON: CT ANGIO CHEST 07/24/2020 8:36 PM FINDINGS: Pulmonary arteries: Normal. No pulmonary emboli. Aorta: Unremarkable. No aortic aneurysm. No aortic dissection. Lungs: Unremarkable. No consolidation. No masses. Pleural spaces: Unremarkable. No pneumothorax. No pleural effusion. Heart: Unremarkable. No cardiomegaly. No pericardial effusion. Lymph nodes: Unremarkable. No enlarged lymph nodes. Bones/joints: Unremarkable. No acute fracture. Soft tissues: Unremarkable. IMPRESSION: No acute findings.
[2023-03-18 17:38] LABS: Basophils # 0.1 K/mm3 (0-0.2); Basophils % 0.5 % (0.1-2.0); Eosinophils # 0.1 K/mm3 (0.0-0.4); Eosinophils % 1.3 % (0.1-12.0); Hematocrit 46.1 % (37.0-47.0); Lymphocytes # 2.9 K/mm3 (0.7-4.5); Lymphocytes % 28.1 % (10-50); Mean Corpuscular HGB Conc 32.6 g/dL (31.8-35.4); Mean Corpuscular Hemoglobin 29.1 pg (27.0-31.2); Mean Corpuscular Volume 89.4 fl (81-99); Monocytes # 0.4 K/mm3 (0.1-1.0); Monocytes % 4.3 % (1.7-9.3); Neutrophils # 6.8 K/mm3 (1.8-7.8); Neutrophils % 65.8 % (37.0-80.0); Platelet Count 265 K/mm3 (142-424); Red Blood Count 5.16 M/mm3 (4.20-5.40); Red Cell Distribution Width 13.5 % (11.5-17.5); White Blood Count 10.3 K/mm3 (4.8-10.8)
--- NOTE | 2023-03-18 17:43 | EXP.HP ---
History of Present Illness *Admission Date: 03/18/23 *Reason for visit:: Tachypnea/dyspnea/COPD *History of present illness: 42-year-old female with history of severe tobacco use disorder, COPD and 3 weeks of viral illness type symptoms that started with a bout of diarrhea and vomiting when her whole family had become ill after a trip to [facility]. She recovered from that episode but since that time has had some increased problems with work of breathing and coughing. Has been to the ER where chest x-ray was nondiagnostic and been to my office is a couple of times where she has been placed on azithromycin, doxycycline and Augmentin with also oral prednisone and failed to improve. She came to my office today with tachypnea tachycardia, pulse rate over 110, respiratory rate in the 50s. She was found to have relatively normal O2 sats but given her tachycardia was decided to admit for inpatient therapy, IV fluids and IV treatment of COPD extubation and to ensure that she was hemodynamically stable. [facility] Disclaimer: The information contained in this section may have been updated after the patient was seen, as this information can be updated by other users. Medical History (Updated 03/18/23 @ 17:43 by Karon Wall) Arthritis Asthma COPD (chronic obstructive pulmonary disease) Endometriosis Endometriosis Gallbladder disease History of back pain History of COVID-19 Hypertension Irritable bowel syndrome (IBS) Kidney stone Migraine Surgical History H/O breast biopsy History of bladder surgery History of cholecystectomy History of colonoscopy History of neck surgery History of partial hysterectomy Hx of tubal ligation Family History Mother Breast cancer Grandfather Skin cancer Grandmother Lung cancer Social History (Updated 05/30/22 @ 08:34 by Rosalie Agosto RN) Smoking Status: Unknown if ever smoked years smoked: 20 second hand exposure: Yes alcohol intake: current substance use type: crack/cocaine current occupational status: employed Travel in the last 8 weeks: None caffeine: Yes Meds Home Medications and Allergies Home Medications Medication Instructions Recorded Confirmed Type lisinopril 20 mg tablet 20 mg PO DAILY HTN 01/16/22 02/25/23 History propranolol 10 mg tablet 10 mg PO DAILY HTN 01/16/22 02/25/23 History trazodone 150 mg tablet 150 mg PO DAILY sleep 01/16/22 02/25/23 History etodolac 200 mg capsule 200 mg PO Q8H PRN pain #15 caps 05/30/22 02/25/23 Rx methocarbamol 500 mg tablet 500 mg PO TID PRN muscle spasm #15 05/30/22 02/25/23 Rx tabs azithromycin 500 mg tablet 500 mg PO DAILY 5 days #5 tabs 02/25/23 Rx methylprednisolone 4 mg tablets in See Rx Instructions .Route 02/25/23 02/25/23 History a dose pack (Medrol (Leo)) .COMPLEX Congestion prednisone 50 mg tablet 50 mg PO DAILY 5 days #5 tabs 02/25/23 Rx New Prescriptions to Start Prescriptions: Allergies Allergy/AdvReac Type Severity Reaction Status Date / Time No Known Allergies Allergy Verified 03/25/22 10:26 Exam Data for Last 24 hours Vital signs and Labs for Last 24 Hours: Temp Pulse Resp BP Pulse Ox O2 Del Method 97.6 F 82 20 155/95 H 100 Room Air 03/18/23 17:02 03/18/23 17:02 03/18/23 17:02 03/18/23 17:02 03/18/23 17:02 03/18/23 17:02 Laboratory Results - last 24 hr 03/18/23 17:25: WBC 10.3, RBC 5.16, Hgb 15.0, Hct 46.1, MCV 89.4, MCH 29.1, MCHC 32.6, RDW 13.5, Plt Count 265, MPV 9.0, Neut % (Auto) 65.8, Lymph % (Auto) 28.1, [place] % (Auto) 4.3, Eos % (Auto) 1.3, Baso % (Auto) 0.5, Neut # (Auto) 6.8, Lymph # (Auto) 2.9, [place] # (Auto) 0.4, Eos # (Auto) 0.1, Baso # (Auto) 0.1 I & O for Last 24 hours: Intake & Output 03/16/23 03/17/23 03/18/23 03/19/23 11:59 11:59 11:59 11:59 Weight 122 lb 7 oz Constitutional Constitutio
[2023-03-18 17:51] LABS: Chloride 106 mmol/L (98-107); Sodium 140 mmol/L (136-145)
[2023-03-18 17:52] LABS: Potassium 3.5 mmoL/L (3.5-5.1)
[2023-03-18 17:53] LABS: Lactic Acid 2.8 mmol/L (0.7-2.1)
[2023-03-18 17:54] LABS: Alanine Aminotransferase 27 U/L (12-78); Albumin Level 4.5 g/dl (3.5-5.0); Albumin/Globulin Ratio 1.6 (1.1-1.8); Alkaline Phosphatase 107 U/L (38-126); Anion Gap 17.5 mEq/L (5-15); Aspartate Amino Transferase 35 U/L (14-36); Bilirubin,Total 0.5 mg/dl (0.2-1.3); Blood Urea Nitrogen 8 mg/dl (7-17); Carbon Dioxide 20 mmol/L (22.0-30.0); Creatinine Clearance Estimated 79 mL/min (50-200); Estimated Glomerular Filt Rate 78 ml/min (>60); GFR (African American) 95 ML/MIN (>60); Globulin 2.9 g/dL (1.3-3.2); Total Protein,Serum 7.4 g/dl (6.3-8.2)
[2023-03-18 17:55] LABS: Calcium 10.4 mg/dl (8.4-10.2); Glucose 92 mg/dl (74-100)
[2023-03-18 17:58] LABS: Magnesium 1.6 mg/dl (1.6-2.3)
--- NOTE | 2023-03-18 18:25 | PC.NURSE ---
Patient off telemetry to go for CT scan
[2023-03-18 20:00] VITALS: BP 149/87; PULSE 71; PULSE 80; RESP 18; TEMP 36.3; O2SAT 99
--- NOTE | 2023-03-18 20:23 | ECG_ITS ---
APPROVED REPORT Exam: Resting ECG HR:65 bpm ECG Measurements Heart Rate 65 AXES AL 174 P 47 QRSd 87 QRS 77 QT 429 T 76 QTc 440 Conclusion SINUS RHYTHM MINIMAL VOLTAGE CRITERIA FOR LVH, CONSIDER NORMAL VARIANT [MEETS CRITERIA IN ONE OF: R(aVL), S(V1), R(V5), R(V5/V6)+S(V1)] BORDERLINE ECG UNCONFIRMED REPORT Electronically signed by : Graham Herrera MD 03/19/2023 15:55:18
[2023-03-18 20:39] LABS: Troponin I < 0.01 ng/ml (0.00-0.034)
[2023-03-18 20:53] VITALS: PULSE 67; PULSE 71
[2023-03-18 21:32] LABS: Reflex Lactic Add Lactic Reflex
[2023-03-18 22:29] LABS: Lactic Acid Follow Up (RFLX 1) 3.7 mmol/L (0.7-2.1)
[2023-03-18 23:45] LABS: Reflex Lactic (2 hrs) Add Lactic Reflex
[2023-03-18 23:56] LABS: Adenovirus,PCR Not Detected (NotDetected); Bordetella Pertussis Not Detected (NotDetected); Chlamydophila Pneumoniae, PCR Not Detected (NotDetected); Coronavirus 19, PCR Not Detected (NotDetected); Coronavirus 229E Not Detected (NotDetected); Coronavirus NL63 Not Detected (NotDetected); Coronavirus OC43 Not Detected (NotDetected); Coronovirus HKU1,PCR Not Detected (NotDetected); Human Metapneumovirus Not Detected (NotDetected); Influenza A, PCR Not Detected (NotDetected); Influenza AH1, 2009 Not Detected (NotDetected); Influenza AH1, PCR Not Detected (NotDetected); Influenza AH3,PCR Not Detected (NotDetected); Influenza B, PCR Not Detected (NotDetected); Mycoplasma Pneumoniae, PCR Not Detected (NotDetected); Parainfluenza 1, PCR Not Detected (NotDetected); Parainfluenza 2, PCR Not Detected (NotDetected); Parainfluenza 3, PCR Not Detected (NotDetected); Parainfluenza 4, PCR Not Detected (NotDetected); Respiratory Syncytial Virus Not Detected (NotDetected)
[2023-03-19] VITALS: PULSE 90
[2023-03-19 00:13] LABS: Troponin I < 0.01 ng/ml (0.00-0.034)
[2023-03-19 03:34] LABS: Rhinovirus/Enterovirus Detected (NotDetected)
[2023-03-19 04:00] VITALS: BP 135/91; PULSE 68; PULSE 70; RESP 20; TEMP 36.6; O2SAT 97; BMI 19.5
--- NOTE | 2023-03-19 05:07 | PC.NURSE ---
Patient has had a good night. Has not complained of SOB. Has been up to the bedside multiple times. Dr. Howell was made aware of critical lactic, no new orders. The only complaint from the patient tonight has been a headache. No other complaints noted
[2023-03-19 06:44] VITALS: PULSE 72; PULSE 73
[2023-03-19 08:00] VITALS: BP 151/79; PULSE 79; PULSE 90; RESP 20; TEMP 36.4; O2SAT 100; O2SAT 97
--- NOTE | 2023-03-19 08:29 | EXP.DC.SUM ---
General Admission date:: 03/18/23 Discharge date: 03/19/23 HPI HPI HPI: 42-year-old female with history of severe tobacco use disorder, COPD and 3 weeks of viral illness type symptoms that started with a bout of diarrhea and vomiting when her whole family had become ill after a trip to [facility]. She recovered from that episode but since that time has had some increased problems with work of breathing and coughing. Has been to the ER where chest x-ray was nondiagnostic and been to my office is a couple of times where she has been placed on azithromycin, doxycycline and Augmentin with also oral prednisone and failed to improve. She came to my office today with tachypnea tachycardia, pulse rate over 110, respiratory rate in the 50s. She was found to have relatively normal O2 sats but given her tachycardia was decided to admit for inpatient therapy, IV fluids and IV treatment of COPD extubation and to ensure that she was hemodynamically stable. Hospital Course Hospital Course Hospital Course: Patient was admitted, CTA of chest was done which was negative. Chest CT was clear fibrosis or infiltrates. Blood cultures were done, negative at the time of discharge. Vital signs improved throughout the hospitalization with IV fluids, steroids and Xopenex neb treatments. PCR testing was positive for rhino/enterovirus. This morning patient feels much better. Vital signs are normal. Interestingly her lactate levels have remained slightly elevated through the hospital stay. However, her electrolytes, kidney function and other labs are normal. I think this is probably from her persistent tachypnea over the past several days. She wishes to go home and I think this is reasonable. Plan to be discharged home with azithromycin, steroids for 5 days, and steroid/LABA inhaler. I will see her in the office as scheduled below. Exam Data for Last 24 hours Vital signs and Labs for Last 24 Hours: Temp Pulse Resp BP Pulse Ox O2 Del Method 97.5 F L 79 20 151/79 H 97 Room Air 03/19/23 08:00 03/19/23 08:00 03/19/23 08:00 03/19/23 08:00 03/19/23 08:00 03/19/23 08:15 Laboratory Results - last 24 hr 03/18/23 17:25: WBC 10.3, RBC 5.16, Hgb 15.0, Hct 46.1, MCV 89.4, MCH 29.1, MCHC 32.6, RDW 13.5, Plt Count 265, MPV 9.0, Neut % (Auto) 65.8, Lymph % (Auto) 28.1, [place] % (Auto) 4.3, Eos % (Auto) 1.3, Baso % (Auto) 0.5, Neut # (Auto) 6.8, Lymph # (Auto) 2.9, [place] # (Auto) 0.4, Eos # (Auto) 0.1, Baso # (Auto) 0.1, Sodium 140, Potassium 3.5, Chloride 106, Carbon Dioxide 20 L, Anion Gap 17.5 H, BUN 8, Creatinine 0.80, Estimated Creat Clear 79, Estimated GFR 78, Est GFR ( Amer) 95, Glucose 92, Lactate 2.8 H, Calcium 10.4 H, Magnesium 1.6, Total Bilirubin 0.5, AST 35, ALT 27, Alkaline Phosphatase 107, Total Protein 7.4, Albumin 4.5, Globulin 2.9, Albumin/Globulin Ratio 1.6 03/18/23 20:10: Troponin I < 0.01 03/18/23 22:05: Lactate 3.7 H 03/18/23 23:40: Lactate 4.0 H, Troponin I < 0.01 03/18/23 23:52: Chlamy pneumoniae PCR Not detected, Adenovirus (PCR) Not detected, B. pertussis DNA (PCR) Not detected, Coronavirus OC43 (PCR) Not detected, Coronavirus HKU1 (PCR) Not detected, Coronavirus 229E (PCR) Not detected, SARS-CoV-2 (PCR) Not detected, Coronavirus NL63 (PCR) Not detected, Human Metapneumovir PCR Not detected, Influenza A (H1) PCR Not detected, Influ A (H1N1/09) PCR Not detected, Influenza A (H3) PCR Not detected, Influenza Type A (PCR) Not detected, Influenza Type B (PCR) Not detected, M. pneumoniae (PCR) Not detected, Parainfluenza 1 (PCR) Not detected, Parainfluenza 2 (PCR) Not detected, Parainfluenza 3 (PCR) Not detected, Parainfluenza 4 (PCR) Not detected, RSV (PCR) Not detected, Entero/Rhino (PCR) Detected A I & O for Last 24 hours: Intake & Output 03/16/23 03/17/23 03/18/23 03/19/23 11:59 11:59 11:59 11:59 Output Total 300 / 300 Balance -300 / -300 Weight 129 lb 3 oz Constitutional Constitutional: no
--- NOTE | 2023-03-19 08:56 | HMH.PHAINT1 ---
Pharmacy Intervention Comments: DISCHARGE MEDICATION COUNSELING PROVIDED. DISCUSSED STOPPING THE FOLLOWING: MEDROL DOSE-KRISTIN AND SPIRIVA. START THE FOLLOWING: -AZITHROMYCIN - PATIENT WAS RECEIVING IV WHILE HERE, NEXT DOSE DUE AROUND 1300, ANTIBIOTIC, TAKE 2 TABS ON DAY 1 THEN 1 TABLET DAYS 2-5, TAKE WITH FOOD, N/V/D POSSIBLE. -SYMBICORT - FOR BREATHING, INHALE 2 PUFFS TWICE DAILY, RINSE MOUTH AFTER USE TO AVOID DEVELOPING THRUSH. -DEXAMETHASONE - STEROID, TWICE DAILY, TAKE WITH FOOD, MAY CAUSE UPSET STOMACH, INSOMNIA IF TAKEN TOO LATE IN THE DAY. PATIENT VERBALIZED NO QUESTIONS AT THIS TIME.
--- NOTE | 2023-03-22 15:34 | CARE MANAGER ---
Spoke with patient for post-discharge phone interview, no issues noted.
== END 2023-03-19 10:18 | disposition home or self-care (01) ==
PROVIDERS: Admitting Provider Internal Medicine Adolescent Medicine; PCP Internal Medicine Adolescent Medicine; Visit Provider Internal Medicine Adolescent Medicine
DX: J44.1 Chronic obstructive pulmonary disease with (acute) exacerbation (principal); F17.210 Nicotine dependence, cigarettes, uncomplicated; Z79.899 Other long term (current) drug therapy; I10 Essential (primary) hypertension; Z86.16 Personal history of COVID-19
CPT/HCPCS: 36415; 71275; 80053; 83605; 83735; 84484; 85025; 87581; 87632; 87798; 93005; 94640; G0378; J0456; J0696; Q9967

== ENCOUNTER → 2023-05-20 14:03 | Outpatient (CLI) | payer OTHER, SELFPAY ==
[2023-05-20 15:00] LABS: Erythrocyte Sedimentation Rate 10 mm/hr (0-20)
[2023-05-20 15:33] LABS: C-Reactive Protein 2.4 mg/L (0-4)
[2023-05-20 16:01] LABS: Thyroid Stimulating Hormone 0.39 uIU/mL (0.465-4.68)
[2023-05-20 16:36] LABS: Vitamin B12 430 pg/mL (239-931)
[2023-05-20 16:37] LABS: Folate 4.73 ng/mL
[2023-05-21 06:13] LABS: HIV Screen 4th Generation wRfx Non Reactive (Non Reactive)
[2023-05-21 08:28] LABS: HBsAg Screen Negative (Negative); HCV Ab Non Reactive (Non Reactive); Hep A Ab, IGM Negative (Negative); Hep B Core Ab, IgM Negative (Negative)
[2023-05-21 12:19] LABS: Rapid Plasma Reagin Ab Titer Non Reactive titer (NonRea<1:1)
[2023-05-22 12:44] LABS: Antinuclear Antibodies (ANA) Negative
== END ==
PROVIDERS: PCP Internal Medicine Adolescent Medicine; Visit Provider Nurse Practitioner Family
DX: G43.019 Migraine without aura, intractable, without status migrainosus (principal); M54.2 Cervicalgia; G89.29 Other chronic pain; F19.91 Other psychoactive substance use, unspecified, in remission; Z98.890 Other specified postprocedural states
CPT/HCPCS: 36415; 80074; 82607; 82746; 84443; 85651; 86038; 86140; 86225; 86235; 86593; 86703; G0432

== ENCOUNTER 2023-08-04 12:15 | Outpatient (CLI) | payer OTHER, SELFPAY ==
--- NOTE | 2023-08-04 12:20 | XR_ITS ---
FINAL REPORT TECHNIQUE: 8 views cervical spine including flexion and extension CLINICAL HISTORY: neck pain COMPARISON: None FINDINGS: CERVICAL SPINE WITH FLEXION EXTENSION: The patient is postop fusion at the C5-6 level. There is normal alignment of the cervical vertebral bodies. No evidence of fracture is seen. There is mild bilateral neural foraminal narrowing at the C5-6 level. There is no movement identified with flexion-extension views. IMPRESSION: Postop C5-6 fusion, with mild bilateral neural foraminal narrowing at that level. No acute bony abnormality is identified, and no movement identified with flexion and extension views. Reviewed, Interpreted and Dictated by Rhianna Mercado MD Transcribed by Sweta Magaña Authenticated and [facility]
== END 2023-08-04 23:59 ==
LOC: RAD 12:17
PROVIDERS: PCP Internal Medicine Adolescent Medicine; Visit Provider Nurse Practitioner Family
DX: M54.2 Cervicalgia (principal); G43.019 Migraine without aura, intractable, without status migrainosus; G89.29 Other chronic pain; F19.91 Other psychoactive substance use, unspecified, in remission; Z98.890 Other specified postprocedural states
CPT/HCPCS: 72052

== ENCOUNTER → 2023-09-07 19:40 | Outpatient (CLI) | payer OTHER, SELFPAY | LOC: SL 19:42 | PROVIDERS: PCP Internal Medicine Adolescent Medicine; Visit Provider Nurse Practitioner Family | DX: G47.30 Sleep apnea, unspecified (principal); R06.83 Snoring; R40.0 Somnolence; R53.83 Other fatigue | CPT/HCPCS: 95810 ==

== ENCOUNTER 2023-10-06 14:51 | Outpatient (CLI) | payer OTHER, SELFPAY ==
--- NOTE | 2023-10-06 15:15 | ECG_ITS ---
APPROVED REPORT Exam: Resting ECG HR:60 bpm ECG Measurements Heart Rate 60 AXES ID 170 P 79 QRSd 79 QRS 82 QT 429 T 72 QTc 430 Conclusion SINUS RHYTHM MODERATE VOLTAGE CRITERIA FOR LVH, CONSIDER NORMAL VARIANT [MEETS CRITERIA IN ONE OF: R(aVL), S(V1), R(V5), R(V5/V6)+S(V1)] NONSPECIFIC T-WAVE ABNORMALITY with U wave noted BORDERLINE ECG UNCONFIRMED REPORT Electronically signed by : Graham Herrera MD 10/07/2023 13:47:12
== END 2023-10-06 23:59 ==
LOC: RT 14:52
PROVIDERS: PCP Internal Medicine Adolescent Medicine; Visit Provider Specialist
DX: R55 Syncope and collapse (principal)
CPT/HCPCS: 93005; 93270

== ENCOUNTER 2023-10-18 07:44 | Outpatient (CLI) | payer OTHER, SELFPAY ==
--- NOTE | 2023-10-18 07:50 | CA_ITS ---
FINAL REPORT TECHNIQUE: Real-time imaging was performed of the extracranial carotid arteries in transverse and longitudinal planes with color duplex evaluation of blood flow velocity. Spectral analysis was performed. The cervicovertebral arteries were also examined. Stenosis evaluation based on elevated velocity criteria. CLINICAL HISTORY: Vertigo, syncope,SMOKER FINDINGS: FINDINGS: RIGHT CAROTID: CCA PSV: 96 cm/sec ICA PSV: 105 cm/sec ECA PSV: 93 cm/sec ICA/CCA systolic flow velocity ratio: 1.2 Minimal atherosclerotic plaque is noted. Narrowing is classified in the less than 50% category. LEFT CAROTID: CCA PSV: 126 cm/sec ICA PSV: 111 cm/sec ECA PSV: 107 cm/sec ICA/CCA systolic flow velocity ratio: 1.2 Minimal atherosclerotic plaque is noted. Narrowing is classified in the less than 50% category. VERTEBRALS: Vertebral arteries are patent with antegrade flow and expected spectral waveforms. IMPRESSION: Less than 50% carotid artery stenosis. Patent vertebral arteries. Reviewed, Interpreted and Dictated by Tiago Cortez MD Transcribed by Yary Davis Authenticated and . [facility]
--- NOTE | 2023-10-18 07:50 | CA_ITS ---
APPROVED REPORT EXAM: Comprehensive 2D, Doppler, and color-flow Echocardiogram Knowledge Manager: Millie Zamorano CRT Ht: 5 ft 8 in Wt: 125lbs BSA: 1.67 BP: 165/80 mmHg Indications: Chest Pain, COPD, Hypertension/HDD, hx of covid, smoker Limited windows due to body habitus. TDS. 2D Dimensions LA Volume 23.50 mL LA Volume Index 13.70 mL/m2 (M/F) 16-34 M-Mode Dimensions RVDd 2.19 cm (0.9-2.6) LA Diam 2.43 cm (1.9-4.0) LVDd 4.56 cm (3.5-5.7) LVDs 3.00 cm (3.5-5.7) IVSd 0.87 cm (0.6-1.1) PWd 0.75 cm (0.6-1.1) EF (Teich) 63.30% FS 34.20% EDV (Teich) 95.40 mL TAPSE 1.98 (<1.7) ESV (Teich) 35.00 mL LV Diastology E Decel Time 103 (160-240 msec) E/A Ratio 1.08 MED A' 6.90 cm/s LAT A' 5.80 cm/s Aortic Valve AO Peak GR. 4.00 mmHg Mitral Valve MV A Velocity 56.0 (40-130 cm/s) E/A Ratio 1.08 Tricuspid Valve TR P. Velocity 91.00 cm/s RAP Estimate 10.00 mmHg RVSP 13.30 mmHg Left Ventricle The left ventricle is normal size. The left ventricular systolic function is normal. The left ventricular ejection fraction is within the normal range. There is normal left ventricular wall thickness. There is normal LV segmental wall motion. The left ventricular diastolic function is normal. LVEF is 55%. Right Ventricle The right ventricle is mildly dilated. The right ventricular systolic function is normal. Atria The left atrium size is normal. The right atrium size is normal. There is no Doppler evidence of interatrial shunt. Aortic Valve The aortic valve opens well. There is no aortic valvular stenosis. No aortic regurgitation is present. Mitral Valve The mitral valve is normal in structure. No evidence of mitral valve stenosis. Mild mitral regurgitation. Tricuspid Valve The tricuspid valve leaflets are thin and pliable. Trace tricuspid regurgitation. There is insufficient TR jet to estimate RVSP. Pulmonic Valve The pulmonary valve is grossly normal in structure. Trace pulmonic regurgitation. Great Vessels The aortic root is normal in size. The ascending aorta is not well-visualized. IVC is normal in size and collapses >50% with inspiration. Pericardium There is no pericardial effusion. Other Information Study Quality: Technically Difficult Conclusion Equal study due to poor acoustic windows. Normal biventricular systolic function. Mild RV dilation. Mild MR. Electronically signed by : Yael Chapman MD 10/20/2023 13:01:55
== END 2023-10-18 23:59 ==
LOC: RT 07:44
PROVIDERS: PCP Internal Medicine Adolescent Medicine; Visit Provider Specialist
DX: R07.9 Chest pain, unspecified (principal); R42 Dizziness and giddiness
CPT/HCPCS: 93306; 93880

== ENCOUNTER 2023-10-26 11:03 | Outpatient (CLI) | payer OTHER, SELFPAY ==
--- NOTE | 2023-10-26 11:04 | NM_ITS ---
APPROVED REPORT Exam: Nuclear Stress Test Indication: Chest pain, SOB, Syncope, Fatigue, HTN, Tobacco use, Family history Patient Location: Outpatient Stress Tech: Marianna Reynaga NM Tech:Caroline Banuelos, ARRT, RT (R)(N) Ht: 5 ft 8 in Wt: 130 lbs Bra Size: B HR: 49 bpm BP: 152/94 mmHg BSA: 1.70 m2 TID: 1.10 BMI: 19.7 History: Chest pain, SOB, Syncope, Fatigue, HTN, Tobacco use, Family history Procedure: Patient received 0.4 mg of intravenous Lexiscan, resting heart rate 49 bpm, resting blood pressure 152/94 mmHg, with Lexiscan maximum heart rate achieved was 106 bpm which is % of the maximum predicted heart rate and blood pressure was 192/108 mmHg. With Lexiscan, patient denied any complaint of chest pain. Cardiac Stress and Resting SPECT Images: Cardiac Stress and Resting SPECT images were obtained using technetium 99m Myoview 30.9 mCi stress and 10.34 mCi at rest. Resting and stress imaging in supine and prone positions demonstrate a medium sized, mild, fixed perfusion defect in the septal and inferoseptal LV herron. No evidence of reversible ischemia. Gated imaging demonstrates mild reduction in global and regional LV systolic function. LVEF is calculated at 45%. Conclusion: Medium sized, mild, fixed perfusion defect in the septal and inferoseptal LV herron. No evidence of reversible ischemia. Gated imaging demonstrates mild reduction in global and regional LV systolic function. LVEF is calculated at 45%. In the setting of LVEF discrepancy between TTE and nuclear stress test, the LVEF on TTE should be considered the true EF. Electronically signed by : Yael Chapman MD 10/28/2023 15:14:08
[2023-10-26] MEDS: REGADENOSON 0.4MG/5ML SYRINGE 0.400000000000000022 MG IV (13:32)
[2023-10-26] MEDS: ISOTOPE MYOVIEW (PER STUDY) 1 DOSE IV (13:32)
[2023-10-26] MEDS: SODIUM CHLORIDE 0.9% 10ML SYR (RAD ONLY) 10 ML IV ×2 (13:32)
--- NOTE | 2023-10-26 13:38 | CA_ITS ---
APPROVED REPORT Exam: Pharmacologic Technologist: Marianna Reynaga Ht: 5 ft 8 in Wt: 126 lbs BSA: 1.68 m2 HR: 55 bpm BP: 152/94 mmHg Indications: Dyspnea Medical History Medications: Lisinopril,,,,, Metoprolol Tartrate,,,,, Albuterol,,,,, Estradiol,,,,, Trazodone,,,,, Escitalopram Oxalate,,,,, UBrelvy,,,,, AJOVY,,,,, Stress Test Details Test: LEXISCAN HR Resting HR: 49 bpm Max Heart Rate (APMHR): 177 bpm Max HR Achieved: 106 bpm Target HR (85% APMHR): 150 bpm % of APMHR: 60 Recovery HR: 81 bpm BP Resting BP: 152.0/94.0 mmHg Max BP: 192.0/108.0 mmHg Recovery BP: 187.0/93.0 mmHg ECG Resting ECG: Sinus bradycardia Stress ECG: No significant ST changes Arrhythmia: None Clinical Exercise duration: 04:01 min Highest Stage Achieved: Exercise capacity: 1.0 METs Stress ECG Conclusion Symptoms: Nausea, shortness of breath Arrhythmias/Ectopy: None ST-T Changes: None Conclusion: EKG unremarkable related to Lexiscan Infusion. Myoview images are reported separately. Test Summary REST . . . . . . . Resting REST 01:22 . . 49 . 152/ 94 . . Stage 1 . . . . . . . Myoview Injected Stage 1 01:00 . . 75 . . . . Stage 2 01:00 . . 101 . 185/164 . . Stage 3 01:00 . . 94 . . . . Stage 4 01:00 . . 81 . 175/107 . . Stage 4 01:01 . . 81 . 175/107 . Stop exercise at 04:01 RECOVERY 01:00 . . 86 . 192/108 . . RECOVERY 02:00 . . 83 . 186/101 . . RECOVERY 03:00 . . 97 . 187/ 93 . . RECOVERY . . . . . . . Nausea RECOVERY 04:00 . . 105 . 187/ 93 . . RECOVERY 05:00 . . 90 . 187/ 93 . . RECOVERY 05:17 . . 77 . 187/ 93 . . Electronically signed by : Yael Chapman MD 10/28/2023 15:11:39
== END 2023-10-26 23:59 | disposition home or self-care (01) ==
LOC: RAD 11:04
PROVIDERS: PCP Internal Medicine Adolescent Medicine; Visit Provider Physician Assistant
DX: R06.09 Other forms of dyspnea (principal); R55 Syncope and collapse; R07.2 Precordial pain; J44.9 Chronic obstructive pulmonary disease, unspecified; F17.200 Nicotine dependence, unspecified, uncomplicated; Z82.49 Family history of ischemic heart disease and other diseases of the circulatory system
CPT/HCPCS: 78452; 93017; 93018; A9502; J2785

== ENCOUNTER 2023-12-06 10:48 | Outpatient (CLI) | payer OTHER, SELFPAY ==
[2023-12-06 11:18] LABS: Blood Urea Nitrogen 6 mg/dl (7-17); Estimated Glomerular Filt Rate 78 ml/min (>60); GFR (African American) 95 ML/MIN (>60)
== END 2023-12-06 23:59 | disposition home or self-care (01) ==
LOC: LAB 10:49
PROVIDERS: PCP Internal Medicine Adolescent Medicine; Visit Provider Internal Medicine
DX: I10 Essential (primary) hypertension (principal); F17.210 Nicotine dependence, cigarettes, uncomplicated
CPT/HCPCS: 36415; 82565; 84520

== ENCOUNTER 2023-12-08 08:46 | Outpatient (CLI) | payer OTHER, SELFPAY ==
--- NOTE | 2023-12-08 08:47 | CT_ITS ---
APPROVED REPORT Adjunct Instructor: CLINICAL INDICATION Chest Pain TECHNIQUE Image Acquisition: A 128 slice MDCT scanner (Advanced Voice Recognition Systemsa View) was used for data acquisition. A noncontrast coronary calcium scan was performed. A CT attenuation threshold of 130 Hounsfield units (HU) was used for the detection of calcium in contiguous voxels of 1 sq mm in area to be counted as individual lesions. Bolus tracking in the ascending aorta with a threshold of 180 HU was performed. Immediately afterwards, ECG synchronized cardiac CT was then performed from the cardiac base to apex using retrospective gating with ECG tube current modulation. A total of 85 mL of Isovue 370 mg/mL contrast medium was administered at 5 mL/sec followed by a saline flush using a biphasic injection protocol. A tube voltage of 120 KVp was used. The patient received the following medications prior to the cardiac CT. 0.8 mg of sublingual nitroglycerin The average heart rate at the time of acquisition was 51 bpm and regular. Image Reconstruction Transaxial images were reconstructed at 0.67 mm slide thickness. Data was reviewed interactively on an advanced workstation capable of 2 and 3-dimensional displays in all conventional reconstruction formats, including multiplanar reformations, maximum intensity projections, curved multiplanar reformations, and volume rendered reconstructions. When applicable, selected routine images describing the relevant coronary anatomy and pathology were saved and sent to PACS. Complications None Technical Quality Overall image quality was suboptimal, due to significant motion and step artifact. Coronary artery opacification was adequate. Total DLP (Dose-Length Product) is 2001.2 mGy-cm. The reported value represents the total of one or more individual components during the CT acquisition of this date and at this time, and as such, the same value may appear in more than one CT report depending on the interpreting/reporting physicians. COMPARISON None FINDINGS CT Coronary Calcium Scoring LMA (Left Main Artery) = 0 LAD (Left Anterior Descending) = 30 LCX (Left Coronary Circumflex) = 0 RCA (Right Coronary Artery) = 84 Total Calcium Score = 114 using the AJ-130 method. The observed calcium score of 114 is at 99th percentile for subjects of the same age, sex, and race/ethnicity. The interpretation of the calcium heart score is based on the following continuum*: 0 = no calcified plaque detected (risk of coronary artery disease is very low ??? less than 5%) 1-10 = calcium detected in extremely minimal levels (risk of coronary diseases is still low ??? less than 10%) 11-100 = mild levels of plaque detected with certainty (mild or minimal narrowing of heart arteries is likely) 101-400 = definite,at least moderate levels of plaque detected (relatively high risk of a heart attack within 3-5 years) >401-999 = extensive levels of plaque detected (high risk of heart attack, high levels of vascular disease are present, high likelihood of at least one significant coronary narrowing) *The calcium heart score quantifies the burden of coronary calcification/plaque in the coronary arteries. The calcium heart score is not able to evaluate the presence or burden of non-calcified (i.e. soft) plaque. There is no identifiable calcification in the aortic valve, mitral annulus or mitral valve, pericardium, or myocardium. Coronary CT Angiography The coronary arterial system is right dominant. Quantitative Stenosis Grading: Left Main (LM): The left main originates normally from the left sinus of Valsalva. The LM bifurcates into the left anterior descending artery and left circumflex artery. The LM is patent with no evidence of atherosclerosis. Left Anterior Descending (LAD) and Diagonal Branches: The LAD gives off 4 diagonal branch(es). There is mixed calcified/noncalcified plaque in the mid LAD segment, with up to 25-49% luminal stenosis. There is a mid LAD segment that is not well-visualized due to significant motion. There is no evidence of LAD-myocardial bridge. Left Circumflex (LCX) and Obtuse Marginals (OM): The LCX gives off 1 Obtuse Marginal (OM) branch(es). The LCX and its branches are patent with no evidence of atherosclerosis. Right Coronary Artery (RCA): The RCA originates normally from the right sinus of Valsalva. The RCA gives off a posterior descending artery (PDA) and posterolateral (PL) branches. There is mixed calcified/noncalcified plaque in the proximal RCA, with up to 50-70% luminal stenosis. Non-Coronary Cardiac Findings: Analysis of the left ventricular (LV) structure and function was performed after 3-D reconstruction of the LV from axial images, with user-corrected automatic contouring for assessment of LV volumes and user-defined reconstruction from oblique planes for measurement of 3-D cardiac structure and function. -The left ventricle systolic function is normal. -There is no left atrial appendage filling defect. Two right pulmonary veins and two left pulmonary veins drain normally into the left atrium. -No pericardial thickening or calcification. -Central and branch pulmonary arteries in the [id number] are unremarkable. -Thoracic aorta within the visualized thoracic aortic-branches in the [id number] is unremarkable. Extracardiac Structures No significant extra-cardiac findings. Note, however, that this study is focused on the cardiac findings. IMPRESSION -Suboptimal image quality due to significant motion and step artifact during image acquisition -Presence of coronary calcification with an Agatston score = 114 using the AJ-130 method. -The observed calcium score of 114 is at 99th percentile for subjects of the same age, sex, and race/ethnicity. -Atherosclerotic plaque in the proximal RCA and mid LAD segments, with possible evidence of significant flow-limiting atherosclerosis of the proximal RCA (50-70% luminal stenosis). -CAD-RADS 3. Management recommendations per ACC/AHA guidelines*, as clinically appropriate. *Recommendations: CAD RADS 0: Reassurance. Consider non-atherosclerotic causes of chest pain. CAD RADS 1: Consider non-atherosclerotic causes of chest pain. Consider preventive therapy and risk factor modification. CAD RADS 2: Consider non-atherosclerotic causes of chest pain. Consider preventive therapy and risk factor modification, particularly for patients with nonobstructive plaque in multiple segments. CAD RADS 3: Consider further functional testing. Consider symptom-guided anti-ischemic and preventive pharmacotherapy as well as risk factor modification per published guideline statements. CAD RADS 4A: Consider further functional testing or invasive coronary angiography with revascularization per published guideline statements. Consider symptom-guided anti-ischemic and preventive pharmacotherapy as well as risk factor modification per published guideline statements. CAD RADS 4B: Invasive coronary angiography recommended with revascularization per published guideline statements. Consider symptom-guided anti-ischemic and preventive pharmacotherapy as well as risk factor modification per published guideline statements. CAD RADS 5: Consider invasive angiography and/or viability assessment with revascularization per published guideline statements. Consider symptom-guided anti-ischemic and preventive pharmacotherapy as well as risk factor modification per published guideline statements. CRITICAL RESULT None COMMUNICATION Per this written report The coronary and cardiac findings of this CCTA were reviewed, reported, and signed by Osvaldo Chapman MD (Reviewer Sales) Conclusion Electronically signed by : Yael Chapman MD 12/09/2023 16:06:39
[2023-12-08 09:02] VITALS: BMI 17.8
[2023-12-08 09:09] VITALS: BP 126/83; PULSE 53; RESP 18; O2SAT 100
[2023-12-08 09:20] VITALS: BP 141/83; PULSE 53; RESP 18; O2SAT 99
[2023-12-08] MEDS: NITROGLYCERIN 0.4MG SL TABLET 0.8 MG SL (09:20)
[2023-12-08 09:21] VITALS: BP 136/71; PULSE 54; RESP 18; O2SAT 99
[2023-12-08 09:25] VITALS: BP 111/68; PULSE 54; RESP 18; O2SAT 99
[2023-12-08 09:30] VITALS: BP 120/65; PULSE 52; RESP 18; O2SAT 99
[2023-12-08] MEDS: IOPAMIDOL-370 (76%);100ML BOTTLE 85 ML IV (09:32)
[2023-12-08] MEDS: 0.9 % SODIUM CHLORIDE 50 ML VIAL IV (09:32)
[2023-12-08] MEDS: SODIUM CHLORIDE 0.9% 10ML SYR (RAD ONLY) 10 ML IV (09:32)
[2023-12-08 09:40] VITALS: BP 123/71; PULSE 52; RESP 18; O2SAT 99
== END 2023-12-08 23:59 | disposition home or self-care (01) ==
PROVIDERS: PCP Internal Medicine Adolescent Medicine; Visit Provider Physician Assistant
DX: R07.2 Precordial pain (principal); R94.39 Abnormal result of other cardiovascular function study
CPT/HCPCS: 75574; Q9967

== ENCOUNTER 2023-12-10 07:45 | Outpatient (CLI) | payer OTHER, SELFPAY ==
--- NOTE | 2023-12-10 08:12 | US_ITS ---
FINAL REPORT TECHNIQUE: Ultrasound images of the kidneys and bladder were obtained. CLINICAL HISTORY: I10 - Essential (primary) hypertension FINDINGS: The right kidney measures 10.8 cm in length. It is normal in echogenicity. There is no hydronephrosis. The left kidney measures 10.7 cm in length. It is normal in echogenicity. There is no hydronephrosis. The spleen is unremarkable. IMPRESSION: No acute process. Reviewed, Interpreted and Dictated by Justice Walls III, MD Transcribed by Ofelia Simmons Authenticated and [facility]
--- NOTE | 2023-12-10 08:55 | CA_ITS ---
FINAL REPORT TECHNIQUE: Grayscale, color Doppler and duplex Doppler ultrasound of the kidneys, aorta and renal arteries was performed. Multiple velocities were measured. CLINICAL HISTORY: Labile HTN,SMOKER COMPARISON: None FINDINGS: Aorta velocity: 70 cm/sec Right kidney: 11 cm. No evidence of hydronephrosis or mass. Right intrarenal RI: 0.61 Right renal artery velocity: 134 cm/sec. Right RAR (Renal artery-Aortic Ratio): 1.9 Left Kidney: 11.2 cm. No evidence of hydronephrosis or mass. Left intrarenal RI: 0.5 Left renal artery velocity: 253 cm/sec. Left RAR (Renal Artery-Aortic Ratio): 3.6 IMPRESSION: No evidence of significant right renal artery stenosis. Greater than 60% stenosis of the left renal artery. Recommend CTA or catheter angiography for further evaluation as clinically indicated. Reviewed, Interpreted and Dictated by Justice Walls III, MD Transcribed by Sweta Magaña Authenticated and [facility]
== END 2023-12-10 23:59 | disposition home or self-care (01) ==
LOC: RT 07:45
PROVIDERS: PCP Internal Medicine Adolescent Medicine; Visit Provider Physician Assistant
DX: I10 Essential (primary) hypertension (principal); F17.210 Nicotine dependence, cigarettes, uncomplicated
CPT/HCPCS: 76770; 93976

== ENCOUNTER 2024-01-04 07:49 | Day surgery (SDC) | payer OTHER, SELFPAY ==
[2024-01-04] VITALS (13 sets, daily range): BP systolic 137–160; BP diastolic 52–115; PULSE 43–60; RESP 17–18; TEMP 36.6; O2SAT 20–100; BMI 18.8
--- NOTE | 2024-01-04 07:08 | IR_ITS ---
APPROVED REPORT Patient Location: Outpatient PROCEDURES Left heart catheterization Left ventriculogram Selective coronary angiogram Bilateral selective renal angiogram Bare-metal stent deployment to the left renal artery INDICATION Coronary artery disease, Abnormal noninvasive coronary artery test, Abnormal renal duplex, Left renal artery stenosis, Renovascular hypertension Informed consent was obtained prior to the procedure. COMPLICATIONS NONE Estimated Blood Loss: LESS THAN 10 ML TECHNIQUE One percent lidocaine used to anesthetize the right anterior aspect of the wrist. The right radial artery was accessed via the Seldinger technique. A 6 Turkmen sheath was placed in the right radial artery. 2.5 mg of Verapamil, 800 mcg of nitroglycerin, 1mg Lidocaine and 5000 U Heparin were given through the arterial sheath. The papa catheter was also used to perform left heart catheterization, left ventriculogram and selective coronary angiogram. At the end of the diagnostic angiogram therapeutic heparin was administered giving a therapeutic ACT and the guide catheter was placed in the left renal artery followed by a BMW wire. A 6 mm x 15 mm Herculink stent was deployed at 11 saji reducing the stenosis to less than 10%. Excellent angiographic results were obtained. At the end the procedure the apparatus was removed the sheath was removed and hemostasis was achieved using TR banding patient was transferred to the postop holding in stable condition ANGIOGRAPHIC RESULTS The left main artery Normal The left anterior descending artery Is proximally normal followed by mid vessel 20% stenosis. The LAD is large and wraps the apex. The first diagonal artery has an ostial 50% followed by an eccentric 40% stenosis. The circumflex artery Nondominant with proximal to mid vessel 40 to 50% stenosis The right coronary artery Is dominant and has proximal 20 to 30% stenoses mid vessel 20% stenoses and a distal eccentric 40 to 50% stenosis The HOWELL ventriculogram reveals Normal 65% The left ventricular end-diastolic pressure Less than 10 mmHg Right renal artery singular normal Left renal artery singular with proximal to mid vessel focal 80% stenosis IMPRESSION Mild to moderate coronary disease as described above Normal ejection fraction Normal left ventricular end-diastolic pressure Severe left renal artery stenosis Successful stenting left renal artery severe disease reduced to less than 10% with 1 bare-metal stent PLAN 1. Aspirin Plavix for 1 month 2. Medical management for coronary disease 3. Increase antianginal medications 4. LDL less than 55 to achieve that high intensity statin Electronically signed by : Delon Holley MD 01/04/2024 10:59:31
[2024-01-04 08:37] LABS: Basophils # 0.1 K/mm3 (0-0.2); Basophils % 1.4 % (0.1-2.0); Eosinophils # 0.1 K/mm3 (0.0-0.4); Eosinophils % 1.2 % (0.1-12.0); Hematocrit 43.4 % (37.0-47.0); Hemoglobin 14.5 g/dL (12.2-16.2); Lymphocytes # 2.1 K/mm3 (0.7-4.5); Lymphocytes % 25.6 % (10-50); Mean Corpuscular HGB Conc 33.5 g/dL (31.8-35.4); Mean Corpuscular Hemoglobin 30.7 pg (27.0-31.2); Mean Corpuscular Volume 91.7 fl (81-99); Monocytes # 0.4 K/mm3 (0.1-1.0); Monocytes % 4.3 % (1.7-9.3); Neutrophils # 5.5 K/mm3 (1.8-7.8); Neutrophils % 67.5 % (37.0-80.0); Platelet Count 243 K/mm3 (142-424); Red Blood Count 4.73 M/mm3 (4.20-5.40); Red Cell Distribution Width 13.9 % (11.5-17.5); White Blood Count 8.1 K/mm3 (4.8-10.8)
[2024-01-04 08:44] LABS: Chloride 106 mmol/L (98-107)
[2024-01-04 08:45] LABS: Potassium 3.8 mmoL/L (3.5-5.1); Sodium 140 mmol/L (136-145)
[2024-01-04 08:48] LABS: Anion Gap 6.8 mEq/L (5-15); Blood Urea Nitrogen 9 mg/dl (7-17); Calcium 9.5 mg/dl (8.4-10.2); Carbon Dioxide 31 mmol/L (22.0-30.0); Creatinine Clearance Estimated 80 mL/min (50-200); Estimated Glomerular Filt Rate 78 ml/min (>60); GFR (African American) 94 ML/MIN (>60); Glucose 86 mg/dl (74-100)
[2024-01-04 09:28] LABS: HCG Qualitative, Serum Negative (Negative)
[2024-01-04] MEDS: HEPARIN 1,000 UNITS/500ML NS (CATH LAB) 3000 UNIT IV (10:04)
[2024-01-04] MEDS: HEPARIN 1,000 UNITS/ML 10ML VIAL (CATH LAB) 10000 UNIT IV (10:05)
[2024-01-04] MEDS: LIDOCAINE 1% 10ML MDV 20 ML IJ (10:05)
[2024-01-04] MEDS: diphenhydrAMINE 50MG/ML VIAL 50 MG IV (10:05)
[2024-01-04] MEDS: VERAPAMIL 2.5MG/ML 2ML VIAL 2.5 MG IV (10:05)
[2024-01-04] MEDS: 0.9 % SODIUM CHLORIDE 500 ML 25 ML IV (10:05)
[2024-01-04] MEDS: NITROGLYCERIN 800MCG/8ML SYR (CATH LAB) 800 MCG IA (10:05)
[2024-01-04] MEDS: MIDAZOLAM HCL 1MG/1ML 5ML VIAL 1 MG IV (10:28)
[2024-01-04] MEDS: FENTANYL 100MCG/2ML VIAL 50 MCG IV (10:29)
[2024-01-04] MEDS: CLOPIDOGREL 300MG TABLET 300 MG PO (11:01)
[2024-01-04] MEDS: IOPAMIDOL-370 (76%);100ML BOTTLE 95 ML IV (11:11)
[2024-01-04 11:13] LABS: CATHL Activated Clotting Time 297 SEC (74-125)
== END 2024-01-04 14:32 | disposition home or self-care (01) ==
PROVIDERS: PCP Internal Medicine Adolescent Medicine; Visit Provider Internal Medicine
DX: I25.118 Atherosclerotic heart disease of native coronary artery with other forms of angina pectoris (principal); I77.1 Stricture of artery; I10 Essential (primary) hypertension; R94.31 Abnormal electrocardiogram [ECG] [EKG]; J44.9 Chronic obstructive pulmonary disease, unspecified; R94.39 Abnormal result of other cardiovascular function study; Z82.49 Family history of ischemic heart disease and other diseases of the circulatory system; I70.1 Atherosclerosis of renal artery; I15.0 Renovascular hypertension; F17.210 Nicotine dependence, cigarettes, uncomplicated; Z79.899 Other long term (current) drug therapy
CPT/HCPCS: 37236; 80048; 84703; 85025; 85347; 93458; 99152; C1725; C1769; C1876; J1644; J2250; J3010; Q9967

== ENCOUNTER 2024-01-07 11:58 | Outpatient (CLI) | payer OTHER, SELFPAY ==
[2024-01-07 12:18] LABS: Basophils # 0.1 K/mm3 (0-0.2); Basophils % 1.5 % (0.1-2.0); Eosinophils # 0.1 K/mm3 (0.0-0.4); Eosinophils % 1.9 % (0.1-12.0); Hematocrit 43.1 % (37.0-47.0); Hemoglobin 14.6 g/dL (12.2-16.2); Lymphocytes # 1.9 K/mm3 (0.7-4.5); Lymphocytes % 29.5 % (10-50); Mean Corpuscular HGB Conc 33.8 g/dL (31.8-35.4); Mean Corpuscular Hemoglobin 30.6 pg (27.0-31.2); Mean Corpuscular Volume 90.7 fl (81-99); Mean Platelet Volume 8.6 fl (7.4-10.4); Monocytes # 0.3 K/mm3 (0.1-1.0); Neutrophils # 4.1 K/mm3 (1.8-7.8); Platelet Count 221 K/mm3 (142-424); Red Blood Count 4.76 M/mm3 (4.20-5.40); Red Cell Distribution Width 13.7 % (11.5-17.5); White Blood Count 6.6 K/mm3 (4.8-10.8)
[2024-01-07 13:51] LABS: Anion Gap 8.7 mEq/L (5-15); Blood Urea Nitrogen 6 mg/dl (7-17); Calcium 9.7 mg/dl (8.4-10.2); Carbon Dioxide 30 mmol/L (22.0-30.0); Chloride 106 mmol/L (98-107); Estimated Glomerular Filt Rate 91 ml/min (>60); GFR (African American) 110 ML/MIN (>60); Glucose 103 mg/dl (74-100); Potassium 3.7 mmoL/L (3.5-5.1); Sodium 141 mmol/L (136-145)
== END 2024-01-07 23:59 | disposition home or self-care (01) ==
LOC: LAB 11:59
PROVIDERS: PCP Internal Medicine Adolescent Medicine; Visit Provider Internal Medicine
DX: I25.10 Atherosclerotic heart disease of native coronary artery without angina pectoris (principal); F17.210 Nicotine dependence, cigarettes, uncomplicated; I10 Essential (primary) hypertension
CPT/HCPCS: 36415; 80048; 85025

== ENCOUNTER 2024-05-25 11:22 | Outpatient (CLI) | payer OTHER, SELFPAY ==
[2024-05-25 11:41] LABS: Basophils # 0.1 K/mm3 (0-0.2); Eosinophils # 0.2 K/mm3 (0.0-0.4); Eosinophils % 1.9 % (0.1-12.0); Hematocrit 43.7 % (37.0-47.0); Hemoglobin 14.7 g/dL (12.2-16.2); Lymphocytes # 2.9 K/mm3 (0.7-4.5); Lymphocytes % 33.7 % (10-50); Mean Corpuscular HGB Conc 33.6 g/dL (31.8-35.4); Mean Corpuscular Hemoglobin 30.5 pg (27.0-31.2); Mean Corpuscular Volume 90.8 fl (81-99); Mean Platelet Volume 8.4 fl (7.4-10.4); Monocytes # 0.5 K/mm3 (0.1-1.0); Monocytes % 5.6 % (1.7-9.3); Neutrophils # 4.9 K/mm3 (1.8-7.8); Neutrophils % 57.8 % (37.0-80.0); Platelet Count 265 K/mm3 (142-424); Red Blood Count 4.81 M/mm3 (4.20-5.40); Red Cell Distribution Width 13.1 % (11.5-17.5); White Blood Count 8.5 K/mm3 (4.8-10.8)
[2024-05-25 11:53] LABS: Albumin Level 4.4 g/dl (3.5-5.0); Chloride 105 mmol/L (98-107); Potassium 4.1 mmoL/L (3.5-5.1); Sodium 142 mmol/L (136-145)
[2024-05-25 11:56] LABS: Alanine Aminotransferase 12 U/L (12-78); Alkaline Phosphatase 70 U/L (38-126); Anion Gap 8.1 mEq/L (5-15); Aspartate Amino Transferase 17 U/L (14-36); Bilirubin,Direct 0.2 mg/dl (0.0-0.4); Bilirubin,Indirect 0.3 mg/dL (0.0-0.9); Bilirubin,Total 0.5 mg/dl (0.2-1.3); Bilirubin,Unconjugated 0.4 mg/dL (0.0-1.1); Blood Urea Nitrogen 9 mg/dl (7-17); Calcium 9.6 mg/dl (8.4-10.2); Carbon Dioxide 33 mmol/L (22.0-30.0); Cholesterol 119 mg/dl (140-200); Estimated Glomerular Filt Rate 78 ml/min (>60); GFR (African American) 94 ML/MIN (>60); Glucose 90 mg/dl (74-100); Magnesium 1.8 mg/dl (1.6-2.3); Total Protein,Serum 6.6 g/dl (6.3-8.2); Triglycerides 103 mg/dl (30-150); VLDL Cholesterol 21 mg/dL (0-40)
[2024-05-25 11:57] LABS: Chol/HDL Ratio 2.2 (1-3.5); HDL Cholesterol 53 mg/dl (40-60)
[2024-05-25 12:07] LABS: Direct LDL Cholesterol 45.33 mg/dL (100-129)
[2024-05-25 12:13] LABS: Free T4 (Free Thyroxine) 1.12 ng/dl (0.78-2.19)
[2024-05-25 12:24] LABS: Troponin I < 0.01 ng/ml (0.00-0.034)
[2024-05-25 12:29] LABS: Thyroid Stimulating Hormone 0.58 uIU/mL (0.465-4.68)
== END 2024-05-25 23:59 | disposition home or self-care (01) ==
LOC: LAB 11:23
PROVIDERS: PCP Internal Medicine Adolescent Medicine; Visit Provider Physician Assistant
DX: I73.9 Peripheral vascular disease, unspecified (principal); I10 Essential (primary) hypertension; Z72.0 Tobacco use
CPT/HCPCS: 36415; 80048; 80061; 80076; 83735; 84439; 84443; 84484; 85025

== ENCOUNTER 2024-06-07 09:54 | Emergency (ER) | payer OTHER, SELFPAY ==
[2024-06-07] VITALS (8 sets, daily range): BP systolic 137–161; BP diastolic 79–110; PULSE 55–88; RESP 13–24; TEMP 36.6–36.8; O2SAT 98–100; BMI 19.8
--- NOTE | 2024-06-07 09:59 | ECG_ITS ---
APPROVED REPORT Exam: Resting ECG HR:79 bpm ECG Measurements Heart Rate 79 AXES [place] 166 P 78 QRSd 84 QRS 78 QT 365 T 65 QTc 400 Conclusion SINUS RHYTHM POSSIBLE RIGHT ATRIAL ENLARGEMENT [0.25mV P-WAVE] MINIMAL VOLTAGE CRITERIA FOR LVH, CONSIDER NORMAL VARIANT [MEETS CRITERIA IN ONE OF: R(aVL), S(V1), R(V5), R(V5/V6)+S(V1)] NONSPECIFIC ST & T-WAVE ABNORMALITY BORDERLINE ECG UNCONFIRMED REPORT Electronically signed by : Олег Mejia, 06/07/2024 15:02:44
--- NOTE | 2024-06-07 10:28 | XR_ITS ---
FINAL REPORT CLINICAL HISTORY: dyspnea FINDINGS: SINGLE VIEW CHEST The heart is normal in size. The mediastinum is unremarkable. The lungs are clear. There is no pneumothorax. There are postoperative changes in the lower cervical spine. IMPRESSION: No acute process. Reviewed, Interpreted and Dictated by Justice Walls III, MD Transcribed by Ofelia Simmons Authenticated and [facility]
--- NOTE | 2024-06-07 10:29 | ED_ITS ---
Discharge Plan Disposition Patient Disposition: Home, Self-Care Prescriptions Prescriptions: No Action Ajovy Autoinjector 225 mg/1.5 mL auto-injector 225 mg SQ QMONTH Qty: 1.5 6RF Ubrelvy 100 mg tablet 100 mg PO ONCE PRN (Reason: Migraine) Qty: 10 6RF Rx Instructions: Take 1 tablet immediately at onset of headache, may repeat 1 tablet after 2 hours if symptoms persist. Max dose 2 tablets in 24 hours. cyproheptadine 4 mg tablet 4 mg PO HS MDD 4 mg Qty: 30 6RF Rx Instructions: 4 mg po qhs for migraine prevention metoprolol succinate 200 mg tablet extended release 24 hr 200 mg PO DAILY 30 Days Qty: 30 4RF hydrochlorothiazide 25 mg tablet 25 mg PO QDAY Qty: 90 3RF amlodipine [Norvasc] 5 mg tablet 5 mg PO DAILY Qty: 30 3RF escitalopram oxalate 10 mg tablet 10 mg PO DAILY Patient Comments: TAKE 1 TABLET BY MOUTH ONCE DAILY estradiol 1 mg tablet 1 mg PO DAILY nitroglycerin 0.4 mg tablet, sublingual 0.4 mg sublingual Q5M PRN (Reason: chest pain) Qty: 20 0RF Rx Instructions: do not exceed 3 doses per episode lisinopril 40 mg tablet 40 mg PO DAILY Qty: 90 3RF atorvastatin [Lipitor] 20 mg tablet 20 mg PO DAILY Qty: 30 2RF aspirin [Adult Low Dose Aspirin] 81 mg tablet,delayed release (DR/EC) 81 mg PO DAILY Qty: 30 2RF loratadine 10 mg tablet 10 mg PO DAILY albuterol sulfate 90 mcg/actuation HFA aerosol inhaler See Rx Instructions .ROUTE .COMPLEX Patient Comments: INHALE 2 PUFFS BY MOUTH EVERY 6 HOURS Rx Instructions: 2 puffs every 6 hours as needed Referrals Follow up/Referrals: Graham Herrera MD [Primary Care Provider] - See instructions Activity Restrictions/Add. 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 Clinical Impressions Clinical Impression: Chest pain Print Language Print Language: Mohawk Discharge ED Provider: Leidy Mejia [facility] General Chief Complaint: Chest Pain Stated Complaint: cp, let arm numb,soa Time Seen by Provider: 06/07/24 10:24 Mode of Arrival: Wheelchair Source of Information: Patient Limitations: No Limitations Description of Symptoms (Recalled from ER Triage Doc. by RN): Patient complaint of left arm tingling, chest pain and shortness of breath that started approx 1 hour ago. History of Present Illness HPI narrative: 43-year-old female with history of coronary disease status post stent 3 months ago presents today with 2 hours of substernal chest discomfort radiating to her left arm nonexertional not associated with dyspnea. She states that the pain is significantly improved since it began. She is on dual antiplatelet therapy with aspirin and Plavix and has been compliant with this since her stenting. Denies any fevers chills cough etc. Related Data Home Medications ?Medication ?Instructions ?Recorded ?Confirmed albuterol sulfate 90 mcg/actuation See Rx Instructions .Route 03/18/23 05/25/24 aerosol inhaler .COMPLEX Breathing Problems escitalopram oxalate 10 mg tablet 10 mg PO DAILY 05/19/23 05/25/24 estradiol 1 mg tablet 1 mg PO DAILY 08/04/23 05/25/24 loratadine 10 mg tablet 10 mg PO DAILY 01/18/24 05/25/24 Previous Rx's ?Medication ?Instructions ?Recorded nitroglycerin 0.4 mg sublingual 0.4 mg sublingual Q5M PRN chest 10/07/23 tablet pain #20 tabs lisinopril 40 mg tablet 40 mg PO DAILY #90 tabs 10/28/23 aspirin 81 mg tablet,delayed 81 mg PO DAILY #30 tabs 12/23/23 release (Adult Low Dose Aspirin) atorvastatin 20 mg tablet (Lipitor) 20 mg PO DAILY #30 tabs 12/23/23 cyproheptadine 4 mg tablet 4 mg PO HS Prevention of migraine 05/10/24 #30 tabs fremanezumab-vfrm 225 mg/1.5 mL 225 mg (1.5 mL) SQ QMONTH #1.5 mL 05/10/24 subcutaneous auto-injector (Ajovy) ubrogepant 100 mg tablet (Ubrelvy) 100 mg PO ONCE PRN Migraine #10 05/10/24 tabs amlodipine 5 mg tablet (Norvasc) 5 mg PO DAILY #30 tabs 05/25/24 hydrochlorothiazide 25 mg tablet 25 mg PO QDAY #90 tabs 05/25/24 metoprolol succinate 200 mg 200 mg PO DAILY 30 days #30 tabs 05/25/24 tablet,extended release 24 hr Allergies Allergy/AdvReac Type Severity Reaction Status Date / Time No Known Allergies Allergy Verified 05/25/24 10:52 [facility] Disclaimer: The information contained in this section may have been updated after the patient was seen, as this information can be updated by other users. Medical History (Updated 06/07/24 @ 10:32 by Leidy Mejai MD) PAD (peripheral artery disease) Hyperlipidemia Renal artery stenosis Coronary artery disease Perforated nasal septum Impacted cerumen, bilateral Kidney stone Endometriosis History of back pain Irritable bowel syndrome (IBS) Arthritis Hypertension History of COVID-19 Asthma COPD (chronic obstructive pulmonary disease) Endometriosis Migraine Gallbladder disease Surgical History History of colonoscopy History of neck surgery History of cholecystectomy History of bladder surgery History of partial hysterectomy H/O breast biopsy Hx of tubal ligation Family History Mother Breast cancer Grandfather Skin cancer Grandmother Lung cancer Other Family history of COPD (chronic obstructive pulmonary disease) Social History Smoking Status: Current every day smoker tobacco type: cigarettes packs per day: 2 years smoked: 20 second hand exposure: Yes alcohol intake: current counseling given: No substance use type: marijuana and crack/cocaine current occupational status: employed Travel in the last 8 weeks: None caffeine: Yes Other Medical History Have you received the Flu Vaccine for this season: No Have you received the Pneumonia Vaccine: No ROS Obtained: Yes All systems reviewed & no additional complaints except as documented Physical Exam General General appearance: alert and in no apparent distress Respiratory Respiratory exam: Present normal lung sounds bilaterally; Absent respiratory distress Cardiovascular Cardiovascular exam: Present regular rate and normal rhythm Abdominal Exam Abdominal exam: Present soft; Absent distention or tenderness Neurological Exam Neurological exam: Present alert and oriented X3 HEART Score HEART Score HEART Score assessment performed?: Yes History (anamnesis): Slightly suspicious ECG: Normal Age: <45 years Risk factors: Atherosclerosis history Troponin: </= normal limit HEART Score: 2 Critical Care Critical Care Time Critical Care Time: No Medical Decision Making Rajinder Inquiry Pt receiving controlled substance: No Vital Signs Vital Signs: 06/07/24 09:55 06/07/24 10:30 06/07/24 11:00 Temperature 98.3 F Temperature Source Oral Pulse Rate 88 64 Pulse Rate [Radial] 87 Respiratory Rate 24 13 19 Blood Pressure 161/110 H 145/93 H Blood Pressure [Right Arm] 148/105 H Blood Pressure Mean [Right Arm] 119 Blood Pressure Source [Right Arm] Automatic Cuff Blood Pressure Position [Right Arm] Sitting 02 Sat by Pulse Oximetry 100 98 100 Oxygen Delivery Method Room Air 06/07/24 11:30 06/07/24 12:00 06/07/24 12:31 Temperature Temperature Source Pulse Rate 65 56 L 62 Pulse Rate [Radial] Respiratory Rate 17 17 14 Blood Pressure 149/90 H 140/95 H 139/79 Blood Pressure [Right Arm] Blood Pressure Mean [Right Arm] Blood Pressure Source [Right Arm] Blood Pressure Position [Right Arm] 02 Sat by Pulse Oximetry 99 99 99 Oxygen Delivery Method 06/07/24 13:00 Temperature Temperature Source Pulse Rate 56 L Pulse Rate [Radial] Respiratory Rate 13 Blood Pressure 143/92 H Blood Pressure [Right Arm] Blood Pressure Mean [Right Arm] Blood Pressure Source [Right Arm] Blood Pressure Position [Right Arm] 02 Sat by Pulse Oximetry 99 Oxygen Delivery Method Lab Data Lab results reviewed: Yes I reviewed the patient's lab results. Labs: Lab Results 06/07/24 10:06: WBC 9.1, RBC 5.06, Hgb 15.3, Hct 44.6, MCV 88.0, MCH 30.2, MCHC 34.3, RDW 13.2, Plt Count 251, MPV 8.3, Neut % (Auto) 64.2, Lymph % (Auto) 30.1, Mcmullen % (Auto) 3.6, Eos % (Auto) 0.7, Baso % (Auto) 1.5, Neut # (Auto) 5.8, Lymph # (Auto) 2.7, Mcmullen # (Auto) 0.3, Eos # (Auto) 0.1, Baso # (Auto) 0.1, D-Dimer 0.51 H, Sodium 139, Potassium 4.0, Chloride 103, Carbon Dioxide 27, Anion Gap 13.0, BUN 11, Creatinine 0.70, Estimated Creat Clear 95, Estimated GFR 91, Est GFR ( Amer) 110, Glucose 137 H, Calcium 9.7, Total Bilirubin 0.5, AST 35, ALT 24, Alkaline Phosphatase 88, Troponin I < 0.01, Total Protein 7.3, Albumin 4.6, Globulin 2.7, Albumin/Globulin Ratio 1.7, HIV 1&2 Antibody Rapid Nonreactive 06/07/24 13:03: Troponin I < 0.01 06/07/24 10:06 06/07/24 10:06 Response Orders (Tests/Meds): ORDERS Category Date Time Status CXR --portable [XR chest portable] Stat Exams 06/07/24 10:28 Completed CBC w/Auto Diff [Complete Blood Count Auto Diff] Stat Lab 06/07/24 10:06 Completed CMP [Comprehensive Metabolic Panel] Stat Lab 06/07/24 10:06 Completed D-Dimer Stat Lab 06/07/24 10:06 Completed HIV (1&2) Antibody Rapid Stat Lab 06/07/24 10:06 Completed Hep C Ab with Reflex to RNA Stat Lab 06/07/24 10:06 Received Trop I [Troponin I] Stat Lab 06/07/24 10:06 Completed Troponin I Q3H Lab 06/07/24 13:03 Completed Troponin I Q3H Lab 06/07/24 16:30 Ordered ECG Data Tracing #1: Attestation: I reviewed this ECG and interpreted as documented below: ECG Narrative: Ventricular rate of 79 normal sinus rhythm no acute ischemic changes noted normal axis right atrial enlargement no significant conduction abnormalities MDM Narrative Medical Decision Narrative: 43-year-old with above history and physical EKG is nonischemic will get serial troponins to rule out acute coronary syndrome given the onset of duration of her symptoms and her presentation time. Also obtain a D-dimer to rule out pulmonary embolism utilizing a years criteria of cutoff of 1.[address] PE. Patient is placed in ED observation anticipate discharge and we will keep a close eye on her. No therapeutic intervention needed at the moment she states her pain is significantly improved. Slightly hypertensive but no definitive evidence of endorgan damage to warrant acute intervention at the moment. Reassessment 1:54 PM chest x-ray was performed which I personally interpreted which shows no acute cardiopulmonary emergency. Specifically no evidence of pneumothorax dense consolidation etc. Labs were unremarkable and after several hours of observation patient remains asymptomatic and stable and serial troponins are negative effectively ruling out acute coronary syndrome. I do not suspect that this is unstable angina. It is possible this is spasming of the coronary vessel in the setting of a recent stent but certainly not a stent rethrombosis. She has been advised to remain compliant with her dual antiplatelet therapy. D-dimer less than 1.0 will not proceed further with any workup of CT PE is also incredibly unlikely that this is a dissection. Patient has been counseled that this is not consistent with an emergent medical condition that she can closely follow-up with cardiology and was discharged in stable condition.
[2024-06-07 10:37] LABS: Basophils # 0.1 K/mm3 (0-0.2); Basophils % 1.5 % (0.1-2.0); Eosinophils # 0.1 K/mm3 (0.0-0.4); Eosinophils % 0.7 % (0.1-12.0); Hematocrit 44.6 % (37.0-47.0); Hemoglobin 15.3 g/dL (12.2-16.2); Lymphocytes # 2.7 K/mm3 (0.7-4.5); Lymphocytes % 30.1 % (10-50); Mean Corpuscular HGB Conc 34.3 g/dL (31.8-35.4); Mean Corpuscular Hemoglobin 30.2 pg (27.0-31.2); Mean Platelet Volume 8.3 fl (7.4-10.4); Monocytes # 0.3 K/mm3 (0.1-1.0); Monocytes % 3.6 % (1.7-9.3); Neutrophils # 5.8 K/mm3 (1.8-7.8); Neutrophils % 64.2 % (37.0-80.0); Platelet Count 251 K/mm3 (142-424); Red Blood Count 5.06 M/mm3 (4.20-5.40); Red Cell Distribution Width 13.2 % (11.5-17.5); White Blood Count 9.1 K/mm3 (4.8-10.8)
[2024-06-07 10:48] LABS: Alanine Aminotransferase 24 U/L (12-78); Albumin Level 4.6 g/dl (3.5-5.0); Albumin/Globulin Ratio 1.7 (1.1-1.8); Alkaline Phosphatase 88 U/L (38-126); Aspartate Amino Transferase 35 U/L (14-36); Bilirubin,Total 0.5 mg/dl (0.2-1.3); Blood Urea Nitrogen 11 mg/dl (7-17); Calcium 9.7 mg/dl (8.4-10.2); Carbon Dioxide 27 mmol/L (22.0-30.0); Chloride 103 mmol/L (98-107); Creatinine Clearance Estimated 95 mL/min (50-200); Estimated Glomerular Filt Rate 91 ml/min (>60); GFR (African American) 110 ML/MIN (>60); Globulin 2.7 g/dL (1.3-3.2); Glucose 137 mg/dl (74-100); Sodium 139 mmol/L (136-145); Total Protein,Serum 7.3 g/dl (6.3-8.2)
[2024-06-07 10:52] LABS: D-Dimer 0.51 ug/mL (0.0-0.5)
[2024-06-07 11:05] LABS: Troponin I < 0.01 ng/ml (0.00-0.034)
[2024-06-07 12:37] LABS: HIV (1&2) Antibody Rapid NONREACTIVE (NONREACTIVE)
[2024-06-07 13:44] LABS: Troponin I < 0.01 ng/ml (0.00-0.034)
--- NOTE | 2024-06-07 13:50 | PC.NURSE ---
DR SALAZAR AT BEDSIDE TO UPDATE PT AND FAMILY
[2024-06-08 06:15] LABS: HCV Ab Non Reactive (Non Reactive)
== END 2024-06-07 13:59 | disposition home or self-care (01) ==
PROVIDERS: Emergency Provider Student in an Organized Health Care Education/Training Program; PCP Internal Medicine Adolescent Medicine
DX: R07.9 Chest pain, unspecified (principal); R06.02 Shortness of breath; R20.2 Paresthesia of skin
CPT/HCPCS: 71045; 80053; 84484; 85025; 85378; 86803; 87389; 93005; 99284

== ENCOUNTER 2024-06-15 08:05 | Outpatient (CLI) | payer OTHER, SELFPAY ==
--- NOTE | 2024-06-15 08:10 | CT_ITS ---
FINAL REPORT TECHNIQUE: Pre-and postcontrast images of the abdomen were performed by computed tomography. Extensive 3-D reconstruction images were performed. A CTA was performed. This study was performed with techniques to keep radiation doses as low as reasonably achievable (ALARA). Individualized dose reduction techniques using automated exposure control or adjustment of mA and/or kV according to the patient's size were employed. CLINICAL HISTORY: focus renal arteries/hx renal artery stenosis COMPARISON: None FINDINGS: ABDOMEN: The lung bases are clear. Precontrast images demonstrate no evidence of nephrolithiasis. No adrenal masses are identified. The liver, spleen and pancreas are unremarkable. The gallbladder has been surgically resected. The appendix is normal in appearance. CTA: The abdominal aorta is proper caliber, with mild to moderate vascular calcifications. The SMA, celiac axis, and KELLEY are patent. There is no significant stenosis or calcification. There is a left renal artery stent present, which is patent. The right renal artery is unremarkable in appearance. The left renal artery lumen is not accurately evaluated on this examination, however the left renal artery branches distal to the stent appear unremarkable. IMPRESSION: The right renal artery is normal in appearance. There is a left renal artery stent present in the proximal left renal artery, which is patent. The lumen is not accurately evaluated on this examination, however the left renal artery branch distal to the stent is normal in caliber. Reviewed, Interpreted and Dictated by Justice Walls III, MD Transcribed by Sweta Magaña Authenticated and [facility]
[2024-06-15] MEDS: 0.9 % SODIUM CHLORIDE 50 ML VIAL IV (08:37)
[2024-06-15] MEDS: IOPAMIDOL-370 (76%);100ML BOTTLE 80 ML IV (08:38)
[2024-06-15] MEDS: SODIUM CHLORIDE 0.9% 10ML SYR (RAD ONLY) 10 ML IV (08:38)
== END 2024-06-15 23:59 | disposition home or self-care (01) ==
LOC: RAD 08:06
PROVIDERS: PCP Internal Medicine Adolescent Medicine; Visit Provider Physician Assistant
DX: R93.422 Abnormal radiologic findings on diagnostic imaging of left kidney (principal); I73.9 Peripheral vascular disease, unspecified; I10 Essential (primary) hypertension
CPT/HCPCS: 74175; Q9967

== ENCOUNTER 2024-09-12 11:17 | Outpatient (CLI) | payer OTHER, SELFPAY ==
--- NOTE | 2024-09-12 11:20 | XR_ITS ---
FINAL REPORT CLINICAL HISTORY: possible foreign body 2nd toe swelling and redness FINDINGS: RIGHT TOES Three views were obtained. There is no fracture or dislocation. The joint spaces appear normal. No soft tissue abnormality is identified. There is no evidence of foreign body. No bony erosion is identified IMPRESSION: No acute process. Reviewed, Interpreted and Dictated by Tiago Cortez MD Transcribed by Ofelia Simmons Authenticated and [facility]
== END 2024-09-12 23:59 | disposition home or self-care (01) ==
LOC: RAD 11:18
PROVIDERS: PCP Family Medicine; Visit Provider Student in an Organized Health Care Education/Training Program
DX: M79.674 Pain in right toe(s) (principal)
CPT/HCPCS: 73660

== ENCOUNTER 2024-10-10 10:00 | Outpatient (CLI) | payer OTHER, SELFPAY | END 2024-10-10 23:59 | disposition home or self-care (01) | LOC: LAB.DROPOF 10-11 09:13 | PROVIDERS: PCP Podiatrist; Visit Provider Podiatrist | DX: M79.671 Pain in right foot (principal); M79.672 Pain in left foot; M77.41 Metatarsalgia, right foot; M77.42 Metatarsalgia, left foot; M21.6X9 Other acquired deformities of unspecified foot; L84 Corns and callosities | CPT/HCPCS: 87070; 87077; 87205 ==

== ENCOUNTER 2024-11-29 16:00 | Outpatient (RCR) | payer OTHER, SELFPAY ==
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
== END 2024-11-29 23:59 | disposition home or self-care (01) ==
LOC: PT 16:00
PROVIDERS: PCP Family Medicine; Visit Provider Specialist
DX: M54.2 Cervicalgia (principal); M54.9 Dorsalgia, unspecified; G43.909 Migraine, unspecified, not intractable, without status migrainosus; Z98.890 Other specified postprocedural states
CPT/HCPCS: 97163; 97530

== ENCOUNTER 2024-12-26 08:41 | Outpatient (CLI) | payer OTHER, SELFPAY ==
--- OUTSIDE RECORDS SUMMARY | 2024-12-26 08:43 | XMS_ITS | Data Portability ---
Author Organization [place] - [facility] Address [address] [place] [id number] Care Team Providers Care Oyster Buyer Name Role Phone SALIMA RUTH Primary Care Provider Assessment No assessment recorded. Plan of Treatment Reminders Order Date Submit Date Provider Last Modified By Organization Details Last Modified Time Details Appointments None recorded. Lab None recorded. Referral None recorded. Procedures None recorded. Surgeries None recorded. Imaging None recorded. Medication Orders Miralax 17 gram oral powder packet [facility] 591, [address], [address], 14:10:04 Linzess 145 mcg capsule [facility] 5[facility], [address], [address], 14:10:07 Miralax 17 gram oral powder packet [facility] 5[facility], [address], [address], 14:45:56 Patient TargetsNo targets recorded. Patient InstructionsNo instructions recorded. Reason for Referral None Reported. Results Created Date Observation Date Name Description Value Unit Range Abnormal Flag Note LastModifiedBy Organization Detail LastModifiedTime Result Notes None recorded. Medical Equipment None Reported. Allergies No known drug allergies Medications Name Sig Start Date Stop Date Status Note LastModified by Organization Details LastModified Time Miralax 17 gram oral powder packet Take 1 packet every day by oral route for 30 days. 2021 active Not Available Not Available Not Avai lable methocarbamo l 500 mg tablet TAKE 1 TABLET BY MOUTH THREE TIMES DAILY NEEDED FOR MUSCLE SPASM active Not Available Not Available No t Available promethazine -DM 6.25 mg-15 mg/5 mL oral syrup TAKE 5 ML BY MOUTH EVERY 6 HOURS FOR 5 DAYS active Not Available Not Available No t Available etodolac 200 mg capsule TAKE 1 CAPSULE BY MOUTH EVERY 8 HOURS NEEDED FOR PAIN active Not Available Not Available No t Available benzonatate 200 mg capsule TAKE 1 CAPSULE BY MOUTH THREE TIMES DAILY NEEDED FOR COUGH FOR 7 DAYS active Not Available Not Available N ot Available lisinopril 20 mg tablet TAKE 1 TABLET BY MOUTH ONCE DAILY active Not Available Not Available No t Available ondansetron HCl 4 mg tablet TAKE 1 TABLET BY MOUTH EVERY 8 HOURS FOR 5 DAYS active Not Available Not Available No t Available prednisone 20 mg tablet TAKE 3 TABLETS BY MOUTH ONCE DAILY FOR 2 DAYS, THEN TAKE 2 TABS FOR 2 DAYS, THEN TAKE 1 TAB UNTIL GONE active Not Available Not Available No t Available triamcinolon e acetonide 0.5 % topical ointment APPLY OINTMENT TOPICALLY TWICE DAILY FOR 7 DAYS active Not Available Not Available N ot Available acyclovir 800 mg tablet TAKE 1 TABLET BY MOUTH FOUR TIMES A DAY FOR 10 DAYS active Not Available Not Available Not Available amoxicillin 875 mg tablet TAKE 1 TABLET BY MOUTH TWICE DAILY FOR 10 DAYS active Not Available Not Available No t Available methocarbamo l 750 mg tablet active Not Available Not Available Not Available estradiol 1 mg tablet TAKE 1 TABLET BY MOUTH ONCE DAILY active Not Available Not Available No t Available trazodone 100 mg tablet TAKE 1 TABLET BY MOUTH EVERY DAY AT BEDTIME active Not Available Not Available No t Available trazodone 150 mg tablet TAKE 1 TABLET BY MOUTH AT BEDTIME active Not Available Not Available No t Available nicotine 21 mg/24 hr daily transdermal patch APPLY 1 PATCH TOPICALLY ONCE DAILY active Not Available Not Available N ot Available mupirocin 2 % topical ointment APPLY OINTMENT TOPICALLY THREE TIMES DAILY FOR 7 DAYS active Not Available Not Available No t Available gabapentin 100 mg capsule TAKE 1 CAPSULE BY MOUTH THREE TIMES DAILY FOR PAIN active Not Available Not Available No t Available levofloxacin 500 mg tablet TAKE 1 TABLET BY MOUTH EVERY 24 HOURS FOR 7 DAYS active Not Available Not Available N ot Available methylpredni solone 4 mg tablets in a dose pack TAKE BY MOUTH DIRECTED ON INSIDE OF PACKAGE active Not Available Not Available No t Available albuterol sulfate HFA 90 mcg/actuatio n aerosol inhaler INHALE 2 PUFFS BY MOUTH EVERY 6 HOURS active Not Available Not Available No t Available propranolol 20 mg tablet TAKE 1 TABLET BY MOUTH TWICE DAILY active Not Available Not Available No t Available cholecalcife rol (vitamin D3) 125 mcg (5,000 unit) capsule TAKE 1 CAPSULE BY MOUTH ONCE DAILY active Not Available Not Available No t Available loratadine 10 mg tablet TAKE 1 TABLET BY MOUTH ONCE DAILY active Not Available Not Available No t Available escitalopram 10 mg tablet TAKE 1 TABLET BY MOUTH ONCE DAILY active Not Available Not Available No t Available Gavilyte-C 240 gram-22.72 gram-6.72 gram-5.84 gram oral solution TAKE DIRECTED, DRINK 8 OUNCES EVERY 15 MINUTES UNTIL EMPTY PER OFFICE DIRECTIONS active Not Available Not Available N ot Available GaviLyte-G 236 gram-22.74 gram-6.74 gram-5.86 gram oral solution active Not Available Not Available Not Available Linzess 145 mcg capsule TAKE 1 CAPSULE BY MOUTH ONCE DAILY FOR 90 DAYS active Not Available Not Available No t Available Anoro Ellipta 62.5 mcg-25 mcg/actuatio n powder for inhalation INHALE 1 PUFF BY MOUTH ONCE DAILY active Not Available Not Available No t Available Vitals Date Recorded Body weight Provider Name an d Address Organization Details Last Updated DateTime 05/19/2022 69425.79 g Amanda Dubois [place] - [facility] & [place] 05/19/2022 13:55:00 Social History None recorded. Functional Status None recorded. Mental Status None recorded. Family History Nothing Reported. Medical History No medical history recorded. Gynecological HistoryNo gynecological history recorded. Obstetrics History GPAL:G 0 P 0 0 0 0 Past Encounters Encounter ID Performer Location Encounter Start Date Encounter Closed Date Diagnosis/Indication Diagnosis SNOMED-CT Code Diagnosis ICD10 Code Diagnosis Note [id number] Carmela Munoz NP [facility] [address] [place] [address] 04/27/2022 13:31:09 04/27/2022 14:51:51 Chronic idiopathic constipation 92007452 K59.04 - discussed MiraLax bowel purge in taking MiraLax once daily- provided samples of Linzess, will prescribe pending follow-up and discussion about efficacy- increased water, fiber and exercise in daily routine- follow-up in 2 weeks History of polyp of colon 444934333 Z86.010 - last colonoscop y 03/25/2022 , poor prep, 1 polyp removed- recommende d repeat colonoscop y in 6 months- colonoscop y scheduled today [id number] Carmela Munoz NP [facility] [address] [place] [address] 05/19/2022 13:45:20 05/19/2022 14:25:19 Chronic idiopathic constipation 04630449 K59.04 - discussed MiraLax bowel purge in taking MiraLax once daily- Linzess 145 mcg was helpful- increased water, fiber and exercise in daily routine- Follow up via phone visit next week History of polyp of colon 877631097 Z86.010 - last colonoscop y 03/25/2022 , poor prep, 1 polyp removed- recommende d repeat colonoscop y in 6 months- colonoscop y scheduled previously [id number] Carmela Munoz NP [facility] [address] [place] [address] 05/27/2022 10:06:46 05/27/2022 10:24:35 Chronic idiopathic constipation 85586815 K59.04 - discussed MiraLax bowel purge in taking MiraLax once daily- Linzess 145 mcg was helpful- increased water, fiber and exercise in daily routine- advised patient to do the MiraLax bowel purge today; can also try magnesium citrate to flush out her colon History of polyp of colon 375120707 Z86.010 - last colonoscop y 03/25/2022 , poor prep, 1 polyp removed- recommende d repeat colonoscop y in 6 months- colonoscop y scheduled previously Health Concerns Section Related Observation LastModified by Organization Detai ls LastModified Time None Recorded Concern Status LastModified by Organization Details LastModified Time None Recorded Advance Directives Directive None Recorded Payers Insurance Date Sequence Insurance Name Policy Number Policy Truong Covered Member ID Truong Member ID Guarantor Name 11/03/2022 1 [facility] [id number] Mindy Ferraro [id number] 10/09/2022 2 [facility] Vincent Jack [id number] Notes Date Note Type Note Provider Name and Address Organization Details Recorded Time 04/27/2022 text/html Patient is a 41-year-old female referred to our office for evaluation of constipation by Dr. Rucker. Reports history of BPBPR and hemorrhoids. Reports she has noticed watery stool for the past 2 years ever since she had COVID. Reports abdominal bloating and gas. Reports fecal urgency. Denies known history of constipation as she always thought of this as diarrhea. Denies nausea, vomiting or hematemesis. Denies heartburn or dysphagia. Carmela Munoz NP [address], [place], [address], [facility] & [place] 04/27/2022 14:46:59 05/19/2022 text/html (04/27/22) Claudia baker is a 41-year-old female referred to our office for evaluation of constipation by Dr. Rucker. Reports history of BPBPR and hemorrhoids. Reports she has noticed watery stool for the past 2 years ever since she had COVID. Reports abdominal bloating and gas. Reports fecal urgency. Denies known history of constipation as she always thought of this as diarrhea. Denies nausea, vomiting or hematemesis. Denies heartburn or dysphagia.( 2) patient is here today for follow-up. Patient reports Linzess 145 mcg is helping with constipation. Was previously advised to do a MiraLax bowel purge and take MiraLax with this medication which she forgot to do. Denies hematochezia or diarrhea. Denies nausea, vomiting or hematemesis. Carmela Munoz NP [address], [place], [address], [facility] & [place] 05/19/2022 15:29:19 05/27/2022 text/html (04/27/22) Claudia baker is a 41-year-old female referred to our office for evaluation of constipation by Dr. Rucker. Reports history of BPBPR and hemorrhoids. Reports she has noticed watery stool for the past 2 years ever since she had COVID. Reports abdominal bloating and gas. Reports fecal urgency. Denies known history of constipation as she always thought of this as diarrhea. Denies nausea, vomiting or hematemesis. Denies heartburn or dysphagia.( 2) patient is here today for follow-up. Patient reports Linzess 145 mcg is helping with constipation. Was previously advised to do a MiraLax bowel purge and take MiraLax with this medication which she forgot to do. Denies hematochezia or diarrhea. Denies nausea, vomiting or hematemesis.(05/27) patient reports she is getting more results taking the MiraLax and Linzess 145 mcg once daily; however, feels she still is not evacuating her colon and has some abdominal bloating. Reports she did not try a MiraLax bowel purge. Denies complaints or concerns otherwiseA total of 6 minutes were spent with the patient during this telephone encounter. Greater than 50% of the time spent in medical decision making and evaluation. Carmela Munoz, REEMA [address] [facility], [place], [address], [place] - [facility] - [place] & [place] 05/27/2022 10:24:09 OBGyn Episode No OBEpisode recorded.
[2024-12-26 09:11] LABS: Basophils # 0.1 K/mm3 (0-0.2); Basophils % 1.1 % (0.1-2.0); Eosinophils # 0.2 Kmm3 (0.0-0.4); Eosinophils % 2.4 % (0.1-12.0); Hematocrit 40.8 % (37.0-47.0); Hemoglobin 13.6 g/dL (12.2-16.2); Immature Granulocytes # 0.03 10^3uL; Immature Granulocytes % 0.4 %; Lymphocytes # 3.2 K/mm3 (0.7-4.5); Lymphocytes % 39.3 % (10-50); Mean Corpuscular HGB Conc 33.3 g/dL (31.8-35.4); Mean Corpuscular Hemoglobin 29.3 pg (27.0-31.2); Mean Corpuscular Volume 87.9 fl (81-99); Mean Platelet Volume 10.4 fl (7.4-10.4); Monocytes # 0.4 K/mm3 (0.1-1.0); Monocytes % 5.2 % (1.7-9.3); Neutrophils # 4.2 K/mm3 (1.8-7.8); Neutrophils % 51.6 % (37.0-80.0); Nucleated Red Blood Cells # 0 10^3/uL; Nucleated Red Blood Cells % 0 %; Platelet Count 245 K/mm3 (142-424); Red Blood Count 4.64 M/mm3 (4.20-5.40); Red Cell Distribution Width 12.4 % (11.5-17.5); Red Cell Distribution Width-SD 39.8 fL; White Blood Count 8.2 K/mm3 (4.8-10.8)
[2024-12-26 09:53] LABS: Albumin Level 4.3 g/dl (3.5-5.0); Chloride 90 mmol/L (98-107)
[2024-12-26 09:54] LABS: Potassium 3.4 mmoL/L (3.5-5.1); Sodium 133 mmol/L (136-145)
[2024-12-26 09:56] LABS: Alanine Aminotransferase 10 U/L (12-78); Alkaline Phosphatase 68 U/L (38-126); Anion Gap 12.4 mEq/L (5-15); Aspartate Amino Transferase 18 U/L (14-36); Bilirubin,Direct 0.1 mg/dl (0.0-0.4); Bilirubin,Indirect 0.3 mg/dL (0.0-0.9); Bilirubin,Total 0.4 mg/dl (0.2-1.3); Bilirubin,Unconjugated 0.4 mg/dL (0.0-1.1); Blood Urea Nitrogen 7 mg/dl (7-17); Carbon Dioxide 34 mmol/L (22.0-30.0); Cholesterol 150 mg/dl (140-200); Estimated Glomerular Filt Rate 68 ml/min (>60); GFR (African American) 82 ML/MIN (>60); Total Protein,Serum 6.5 g/dl (6.3-8.2); Triglycerides 161 mg/dl (30-150); VLDL Cholesterol 32 mg/dL (0-40)
[2024-12-26 09:57] LABS: Calcium 9.2 mg/dl (8.4-10.2); Chol/HDL Ratio 3.2 (1-3.5); Glucose 87 mg/dl (74-100); HDL Cholesterol 47 mg/dl (40-60); Magnesium 1.6 mg/dl (1.6-2.3)
[2024-12-26 10:08] LABS: Direct LDL Cholesterol 59.16 mg/dL (100-129)
[2024-12-26 10:16] LABS: Free T4 (Free Thyroxine) 1.23 ng/dl (0.78-2.19)
[2024-12-26 10:30] LABS: Thyroid Stimulating Hormone 0.51 uIU/mL (0.465-4.68)
== END 2024-12-26 23:59 | disposition home or self-care (01) ==
LOC: LAB 08:41
PROVIDERS: PCP Family Medicine; Visit Provider Physician Assistant
DX: I25.10 Atherosclerotic heart disease of native coronary artery without angina pectoris (principal); E78.5 Hyperlipidemia, unspecified; I70.1 Atherosclerosis of renal artery; I10 Essential (primary) hypertension; R60.9 Edema, unspecified
CPT/HCPCS: 36415; 80048; 80061; 80076; 83735; 84439; 84443; 85025

== ENCOUNTER 2025-01-11 13:14 | Outpatient (CLI) | payer OTHER, SELFPAY ==
[2025-01-11 14:14] LABS: Anion Gap 15.2 mEq/L (5-15); Blood Urea Nitrogen 6 mg/dl (7-17); Calcium 10.1 mg/dl (8.4-10.2); Carbon Dioxide 28 mmol/L (22.0-30.0); Chloride 92 mmol/L (98-107); Creatinine,Serum 0.90 mg/dl (0.52-1.04); Estimated Glomerular Filt Rate 68 ml/min (>60); GFR (African American) 82 ML/MIN (>60); Glucose 120 mg/dl (74-100); Potassium 3.2 mmoL/L (3.5-5.1); Sodium 132 mmol/L (136-145)
== END 2025-01-11 23:59 | disposition home or self-care (01) ==
LOC: LAB 13:15
PROVIDERS: PCP Family Medicine; Visit Provider Physician Assistant
DX: E87.6 Hypokalemia (principal); E87.1 Hypo-osmolality and hyponatremia
CPT/HCPCS: 36415; 80048

== ENCOUNTER 2025-02-04 10:21 | Outpatient (CLI) | payer BC, SELFPAY ==
[2025-02-04 21:17] LABS: Influenza A, PCR Not Detected (NotDetected); Influenza B, PCR Not Detected (NotDetected)
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
[2025-02-07 20:44] LABS: Coronavirus 19, PCR Detected (NotDetected)
== END 2025-02-04 23:59 | disposition home or self-care (01) ==
LOC: LAB.DROPOF 02-06 10:48
PROVIDERS: PCP Nurse Practitioner Family; Visit Provider Nurse Practitioner Family
DX: J02.9 Acute pharyngitis, unspecified (principal)
CPT/HCPCS: 87631

== ENCOUNTER 2025-07-03 12:29 | Outpatient (CLI) | payer BC, SELFPAY ==
[2025-07-03 20:49] LABS: Anion Gap 13.0 mEq/L (5-15); Blood Urea Nitrogen 5 mg/dl (7-17); Calcium 10.1 mg/dl (8.4-10.2); Carbon Dioxide 31 mmol/L (22.0-30.0); Chloride 101 mmol/L (98-107); Creatinine,Serum 0.70 mg/dl (0.52-1.04); Estimated Glomerular Filt Rate 90 ml/min (>60); GFR (African American) 109 ML/MIN (>60); Glucose 96 mg/dl (74-100); Potassium 4.0 mmoL/L (3.5-5.1); Sodium 141 mmol/L (136-145)
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
== END 2025-07-03 23:59 | disposition home or self-care (01) ==
LOC: LAB.DROPOF 07-04 09:58
PROVIDERS: PCP Family Medicine; Visit Provider Student in an Organized Health Care Education/Training Program
DX: E87.6 Hypokalemia (principal); I10 Essential (primary) hypertension
CPT/HCPCS: 80048